=== PATIENT | male | born 1990 | race American Indian/Alaskan Native ===

== ENCOUNTER 2020-12-31 11:44 | Inpatient (IN) | payer OTHER ==
--- NOTE | 2020-12-31 12:03 | Event Note ---
ED Screening Note Date of service: 12/31/20 Time: 12:01 ED Screening Note: Patient complains of continued right lower leg swelling and pain x2 months and new onset of chest pain or shortness of breath Patient was seen at [place] x2 for right leg swelling and wound; states just finished Bactrim and had an ultrasound that was negative for DVT 1 week ago Patient noted to be tachycardic with a fever Patient mildly tachypneic on exam This initial assessment/diagnostic orders/clinical plan/treatment(s) is/are subject to change based on patients health status, clinical progression and re- assessment by fellow clinical providers in the ED. Further treatment and workup at subsequent clinical providers discretion. Patient/guardian urged not to elope from the ED as their condition may be serious if not clinically assessed and managed. Initial orders include: Sepsis protocol
[2020-12-31] MEDS ORDERED: ACETAMINOPHEN 325 MG TAB PO ONE (12:04)
[2020-12-31] MEDS ORDERED: SODIUM CHLORIDE 0.9% 1000 ML 1,000 ML IV ONE (12:42)
[2020-12-31] MEDS ORDERED: CEFEPIME/NS 2 GM/100 ML 2 GM/100 ML BAG IV ONE (12:43)
[2020-12-31 12:45] LABS: Basophils % (Auto) 0.3 % (0.0-1.8); Eosinophils % (Auto) 0.2 % (0.0-4.3); Lymphocytes # (Auto) 2.1 K/mm3 (1.2-5.4); Lymphocytes % (Auto) 16.6 % (13.4-35.0); Mean Corpuscular HGB Conc 33 % (32-34); Mean Corpuscular Volume 92 fl (84-94); Monocytes # (Auto) 0.9 K/mm3 (0.0-0.8); Monocytes % (Auto) 7.3 % (0.0-7.3); Platelet Count 214 K/mm3 (140-440); Red Blood Count 4.56 M/mm3 (3.65-5.03); Red Cell Distribution Width 13.9 % (13.2-15.2)
[2020-12-31] MEDS ORDERED: VANCOMYCIN PHARMACY TO DOSE IV SCH ×2 (13:00→23:00)
[2020-12-31 13:10] LABS: Alanine Aminotransferase 25 units/L (7-56); Albumin 3.9 g/dL (3.9-5); BUN/Creatinine Ratio 13; Blood Urea Nitrogen 15 mg/dL (9-20); Calcium 8.8 mg/dL (8.4-10.2); Hemolysis Index 4
[2020-12-31] MEDS ORDERED: VANCOMYCIN 2,000 MG in SODIUM CHLORIDE 0.9% 500 ML 500 ML IV ONE (13:30)
--- NOTE | 2020-12-31 13:32 | Emergency Department Report ---
ED General Adult HPI - General Chief complaint: Wound/Laceration Stated complaint: CHEST PAIN/SOB/RT LEG PAIN Time Seen by Provider: 12/31/20 12:01 Source: patient Mode of arrival: Ambulatory Limitations: No Limitations - History of Present Illness Initial comments: This is a 30-year-old male who gives a somewhat variable history. According to the screening note: Patient complains of continued right lower leg swelling and pain x2 months and new onset of chest pain or shortness of breath Patient was seen at [place] x2 for right leg swelling and wound; states just finished Bactrim and had an ultrasound that was negative for DVT 1 week ago Patient noted to be tachycardic with a fever Patient mildly tachypneic on exam Patient is a difficult historian. He was additionally somewhat reticent to allow examination of his feet. He denies recent travel to [place] but then told the nurse that he had a recent trip to [place] to "see his old lady". He told me he had a history of hypertension but is on medication typical for heart failure to include lisinopril carvedilol and Lasix. He stated that he did not have an ulcer on his leg but a problem that is "venous". He has been to the [place] emergency department 2 times over the last 2 to 3 weeks. He indicated to me that he has had a negative ultrasound of the affected leg. Patient states that he has had chills since last night. He measured his temperature at home and it was greater than 99. He stated he had some headache and substernal chest pain which was also mildly felt posteriorly. Pain was not pleuritic. Chest pain has resolved. He is no longer complaining of a headache. -: Gradual, week(s) Severity scale (0 -10): 6 - Related Data Allergies Allergy/AdvReac Type Severity Reaction Status Date / Time shellfish derived Allergy Hives Verified 12/31/20 11:58 ED Review of Systems ROS: Stated complaint: CHEST PAIN/SOB/RT LEG PAIN Other details as noted in HPI Constitutional: chills, fever Eyes: denies: eye pain, vision change ENT: denies: ear pain, throat pain Respiratory: shortness of breath. denies: cough, wheezing Cardiovascular: chest pain. denies: palpitations Endocrine: no symptoms reported Gastrointestinal: denies: abdominal pain, nausea, diarrhea Genitourinary: denies: urgency, dysuria Musculoskeletal: as per HPI (Bilateral leg swelling, ulcer right posterior calf). denies: back pain, arthralgia Skin: as per HPI (Superficial ulcer with a lot of exudate of the right posterior calf. Foul-smelling. Some erythema of the right foot. 2-3+ edema of bilateral legs. Dorsalis pedis pulses present bilaterally. Neurovascular exam is grossly intact.). denies: rash, lesions Neurological: denies: headache, weakness, paresthesias Psychiatric: denies: anxiety, depression Hematological/Lymphatic: denies: easy bleeding, easy bruising ED Past Medical Hx - Past Medical History Hx Hypertension: Yes Hx Congestive Heart Failure: Yes Hx Diabetes: No (Denies) Additional medical history: Leg ulcer treated with Bactrim. - Surgical History Past Surgical History?: No - Social History Smoking Status: Current Every Day Smoker Substance Use Type: None ED Physical Exam - General Limitations: Physical Limitation General appearance: obese (Morbid) - Head Head exam: Present: atraumatic, normocephalic - Eye Eye exam: Present: normal appearance. Absent: scleral icterus - ENT ENT exam: Present: mucous membranes moist - Neck Neck exam: Present: normal inspection. Absent: tenderness - Respiratory Respiratory exam: Present: normal lung sounds bilaterally. Absent: respiratory distress - Cardiovascular Cardiovascular Exam: Present: regular rate, normal rhythm. Absent: systolic murmur, diastolic murmur, rubs, gallop - GI/Abdominal GI/Abdominal exam: Present: soft, distended, normal bowel sounds. Absent: tenderness, guarding, rebound, rigid - Rectal Rectal exam: Present: deferred - Extremities Exam Extremities exam: Present: other (Ulcer as described below) - Back Exam Back exam: Present: normal inspection - Neurological Exam Neurological exam: Present: alert, oriented X3 - Psychiatric Psychiatric exam: Present: normal affect, normal mood - Skin Skin exam: Present: warm, dry, other (Superficial ulcer with a lot of exudate of the right posterior calf. Foul-smelling. Some erythema of the right foot. 2- 3+ edema of bilateral legs. Dorsalis pedis pulses present bilaterally. Neurovascular exam is grossly intact.). Absent: rash ED Course Vital Signs 12/31/20 12:01 Temperature 100.5 F H Pulse Rate 106 H Respiratory 24 Rate Blood Pressure 157/94 O2 Sat by Pulse 98 Oximetry - Reevaluation(s) Reevaluation #1: IV fluids at a controlled rate, empiric antibiotics, admission is anticipated. Review chest x-ray, labs additional medical screening. 12/31/20 13:35 Reevaluation #2: Discussed with hospitalist and admit. Fluids, controlled fashion considering history of CHF. Empiric antibiotics. Patient is stable. Admit by Dr. Stuart. 12/31/20 14:19 ED Medical Decision Making - Lab Data Result diagrams: 12/31/20 12:21 12/31/20 12:21 - EKG Data -: EKG Interpreted by [place] EKG shows normal: sinus rhythm, axis, intervals, ST-T waves Rate: tachycardia - EKG Data Interpretation: other (There is a QS in V2 and V3, this may be related to LVH/habitus. Cannot exclude old septal injury.) - Radiology Data Radiology results: image reviewed (I do not see any acute process on tibial films or chest x-ray. Consider cardiomegaly. No decompensation.) Critical care attestation.: If time is entered above; I have spent that time in minutes in the direct care of this critically ill patient, excluding procedure time. ED Disposition Clinical Impression: Morbid obesity, Venous stasis ulcer of right lower leg with edema of right lower leg Sepsis Qualifiers: Sepsis type: sepsis due to unspecified organism Sepsis acute organ dysfunction status: without acute organ dysfunction Qualified Code(s): A41.9 - Sepsis, unspecified organism Cardiomyopathy Qualifiers: Cardiomyopathy type: unspecified Qualified Code(s): I42.9 - Cardiomyopathy, unspecified Disposition: OP ADMIT IP TO THIS HOSP Is pt being admited?: Yes Does the pt Need Aspirin: Yes Condition: Stable Referrals: PRIMARY CARE,MD [Primary Care Provider] - 3-5 Days Time of Disposition: 14:21
--- NOTE | 2020-12-31 13:38 | XRay Report ---
XR chest 1V ap INDICATION / CLINICAL INFORMATION: SOB, chest pain, fever. COMPARISON: None available. FINDINGS: Findings in the chest are accentuated by body habitus and phase of inspiration. SUPPORT DEVICES: None. HEART /PULMONARY VASCULATURE: The LUNGS / PLEURA: No significant pulmonary or pleural abnormality. No pneumothorax. ADDITIONAL FINDINGS: No significant additional findings. IMPRESSION: Low lung volumes and cardiomegaly. No definite acute chest process. Signer Name: Frederick Head MD Signed: 12/31/2020 1:34 PM Workstation Name: [id number]
[2020-12-31 13:41] LABS: Bilirubin,Urine NEG (Negative); Blood,Urine SM (Negative); Color,Urine Yellow (Yellow); Mucus,Urine FEW /HPF; Protein,Urine <15 mg/dL mg/dL (Negative); Urobilinogen,Urine < 2.0 mg/dL (<2.0)
[2020-12-31 13:47] LABS: INR 1.02 (0.87-1.13)
[2020-12-31 13:47] LABS: Amphetamine Screen,Urine Negative; Benzodiazepines Screen,Urine Negative; Cannabinoid Screen,Urine Negative; Cocaine Screen,Urine Negative; Methadone Screen,Urine Negative; Opiate Screen,Urine Negative
--- NOTE | 2020-12-31 13:47 | XRay Report ---
RIGHT TIBIA-FIBULA 6 VIEW(S) INDICATION / CLINICAL INFORMATION: chronic wound, worsening COMPARISON: None available. FINDINGS: BONES / JOINT(S): No acute fracture or subluxation. No significant arthritis. SOFT TISSUES: Moderate diffuse soft tissue swelling may be secondary to dependent edema or cellulitis ADDITIONAL FINDINGS: No soft tissue ulcer or radiographic evidence for osteomyelitis right foreleg Signer Name: Kavin Méndez MD Signed: 12/31/2020 1:43 PM Workstation Name: [id number]
[2020-12-31 13:48] LABS: Partial Thromboplastin Time 28.4 Sec. (24.2-36.6)
[2020-12-31 13:55] LABS: Creatine Kinase MB 1.7 ng/mL (0.0-4.0)
[2020-12-31] MEDS ORDERED: ASPIRIN 325 MG TAB PO ONE (14:21)
[2020-12-31] MEDS ORDERED: HYDROmorphone 1 MG/1 ML INJ ONE (18:57)
[2020-12-31] MEDS: HYDROmorphone 1 MG/1 ML INJ IV PRN ×2 (19:01→22:13)
--- NOTE | 2020-12-31 21:39 | History and Physical Report ---
History of Present Illness Date of examination: 12/31/20 Date of admission: 12/31/20 14:22 Chief complaint: Shortness of breath for 1 week Right leg ulcer for 1 month History of present illness: 30-year-old male with morbid obesity and BMI of 62 with history of congestive heart failure and right leg ulcer comes in for increasing shortness of breath of 1 week duration. Also right leg ulcer for more than a month with his worsening with slight drainage. The ulcer is on the right lower extremity just 6 inches above the ankle on the posterior aspect. No fever or chills. Orthopnea present. Class IV NYHA symptoms present. Patient is a very poor historian. Occasional chest pain. Patient is not sure about his chest pain. States it is mild and intermittent. - Past Medical History --Hypertension: Yes --Congestive Heart Failure: Yes --Diabetes: No (Denies) Additional medical history: Leg ulcer treated with Bactrim. - Surgical History Past Surgical History?: No - Social History Smoking Status: Current Every Day Smoker Substance Use Type: None Review of Systems ROS: Stated complaint: CHEST PAIN/SOB/RT LEG PAIN Other details as noted in HPI Constitutional: chills, fever Eyes: denies: eye pain, vision change ENT: denies: ear pain, throat pain Respiratory: shortness of breath. denies: cough, wheezing Cardiovascular: chest pain. denies: palpitations Endocrine: no symptoms reported Gastrointestinal: denies: abdominal pain, nausea, diarrhea Genitourinary: denies: urgency, dysuria Musculoskeletal: as per HPI (Bilateral leg swelling, ulcer right posterior calf). denies: back pain, arthralgia Skin: as per HPI (Superficial ulcer with a lot of exudate of the right posterior calf. Foul-smelling. Some erythema of the right foot. 2-3+ edema of bilateral legs. Dorsalis pedis pulses present bilaterally. Neurovascular exam is grossly intact.). denies: rash, lesions Neurological: denies: headache, weakness, paresthesias Psychiatric: denies: anxiety, depression Hematological/Lymphatic: denies: easy bleeding, easy bruising Medications and Allergies Allergies Allergy/AdvReac Type Severity Reaction Status Date / Time shellfish derived Allergy Hives Verified 12/31/20 11:58 Home Medications Medication Instructions Recorded Confirmed Last Taken Type Furosemide [Lasix] 20 mg PO QDAY 01/01/21 01/01/21 Unknown History Ibuprofen [Motrin] 600 mg PO Q8H PRN 01/01/21 01/01/21 Unknown History amLODIPine [Norvasc] 10 mg PO DAILY 01/01/21 01/01/21 Unknown History carvediloL [Coreg] 12.5 mg PO BID 01/01/21 01/01/21 Unknown History lisinopriL [Lisinopril] 10 mg PO DAILY 01/01/21 01/01/21 Unknown History Active Meds: Active Medications Hydromorphone HCl (Hydromorphone 1 Mg/1 Ml Inj) 0.5 mg IV Q3H PRN PRN Reason: Pain , Severe (7-10) Last Admin: 12/31/20 19:01 Dose: 0.5 mg Documented by: Exam - Constitutional Vitals: Temp Pulse Resp BP Pulse Ox 100.5 F H 99 H 16 147/85 95 12/31/20 12:01 12/31/20 19:01 12/31/20 19:31 12/31/20 18:00 12/31/20 16:00 General appearance: Present: severe distress, well-nourished - EENT Eyes: Present: PERRL ENT: hearing intact, clear oral mucosa - Neck Neck: Present: supple, normal ROM - Respiratory Respiratory effort: normal Respiratory: bilateral: CTA, rales - Cardiovascular Heart rate: 98 Rhythm: regular Heart Sounds: Present: S1 & S2. Absent: rub, click - Extremities Extremities: pulses symmetrical, No edema, abnormal (Right leg ulcer 10 cm X 5 cm 1 mm to 2 mm depth no active drainage.) Peripheral Pulses: within normal limits - Abdominal General gastrointestinal: Present: soft, non-tender, non-distended, normal bowel sounds Male genitourinary: Present: normal - Integumentary Integumentary: Present: clear, warm, dry - Musculoskeletal Musculoskeletal: gait normal, strength equal bilaterally - Psychiatric Psychiatric: appropriate mood/affect, intact judgment & insight - Neurologic Neurologic: CNII-XII intact, moves all extremities HEART Score - HEART Score History: Moderately suspicious EKG: Non-specific Age: < 45 Risk factors: 1-2 risk factors Troponin: Troponin T < 0.010 ng/mL (0.00-0.029) 12/31/20 12:21 Troponin: 1-3x normal limit HEART Score: 4 - Critical Actions Critical Actions: 4-6 pts:12-16.6% risk of adverse cardiac event. Should be admitted Results - Labs CBC & Chem 7: 12/31/20 12:21 12/31/20 12:21 Labs: Laboratory Last Values WBC 12.6 K/mm3 (4.5-11.0) H 12/31/20 12:21 RBC 4.56 M/mm3 (3.65-5.03) 12/31/20 12:21 Hgb 14.0 gm/dl (11.8-15.2) 12/31/20 12:21 Hct 42.0 % (35.5-45.6) 12/31/20 12: MCV 92 fl (84-94) 12/31/20 12: MCH 31 pg (28-32) 12/31/20 12: MCHC 33 % (32-34) 12/31/20 12:21 RDW 13.9 % (13.2-15.2) 12/31/20 12:21 Plt Count 214 K/mm3 (140-440) 12/31/20 12:21 Lymph % (Auto) 16.6 % (13.4-35.0) 12/31/20 12: [place] % (Auto) 7.3 % (0.0-7.3) 12/31/20 12: Eos % (Auto) 0.2 % (0.0-4.3) 12/31/20 12:21 Baso % (Auto) 0.3 % (0.0-1.8) 12/31/20 12: Lymph # (Auto) 2.1 K/mm3 (1.2-5.4) 12/31/20 12:21 [place] # (Auto) 0.9 K/mm3 (0.0-0.8) H 12/31/20 12:21 Eos # (Auto) 0.0 K/mm3 (0.0-0.4) 12/31/20 12: Baso # (Auto) 0.0 K/mm3 (0.0-0.1) 12/31/20 12:21 Seg Neutrophils % 75.6 % (40.0-70.0) H 12/31/20 12: Seg Neutrophils # 9.5 K/mm3 (1.8-7.7) H 12/31/20 12:21 PT 13.2 Sec. (12.2-14.9) 12/31/20 13:21 INR 1.02 (0.87-1.13) 12/31/20 13:21 APTT 28.4 Sec. (24.2-36.6) 12/31/20 13:21 Sodium 133 mmol/L (137-145) L 12/31/20 12:21 Potassium 3.8 mmol/L (3.6-5.0) 12/31/20 12:21 Chloride 97.9 mmol/L (98-107) L 12/31/20 12:21 Carbon Dioxide 26 mmol/L (22-30) 12/31/20 12:21 Anion Gap 13 mmol/L 12/31/20 12:21 BUN 15 mg/dL (9-20) 12/31/20 12:21 Creatinine 1.2 mg/dL (0.8-1.3) 12/31/20 12:21 Estimated GFR > 60 ml/min 12/31/20 12:21 BUN/Creatinine Ratio 13 % 12/31/20 12:21 Glucose 89 mg/dL (75-100) 12/31/20 12:21 Lactic Acid 1.00 mmol/L (0.7-2.0) 12/31/20 12:21 Calcium 8.8 mg/dL (8.4-10.2) 12/31/20 12:21 Magnesium 1.70 mg/dL (1.7-2.3) 12/31/20 13:21 Total Bilirubin 0.50 mg/dL (0.1-1.2) 12/31/20 12:21 AST 24 units/L (5-40) 12/31/20 12:21 ALT 25 units/L (7-56) 12/31/20 12:21 Alkaline Phosphatase 74 units/L (35-129) 12/31/20 12:21 Total Creatine Kinase 639 units/L (55-170) H 12/31/20 13:21 CK-MB (CK-2) 1.7 ng/mL (0.0-4.0) 12/31/20 13:21 CK-MB (CK-2) Rel Index 0.2 (0-4) 12/31/20 13:21 Troponin T < 0.010 ng/mL (0.00-0.029) 12/31/20 12:21 NT-Pro-B Natriuret Pep 417.4 pg/mL (0-450) 12/31/20 13:21 Total Protein 7.4 g/dL (6.3-8.2) 12/31/20 12:21 Albumin 3.9 g/dL (3.9-5) 12/31/20 12:21 Albumin/Globulin Ratio 1.1 % 12/31/20 12:21 Urine Color Yellow (Yellow) 12/31/20 Unknown Urine Turbidity Clear (Clear) 12/31/20 Unknown Urine pH 7.0 (5.0-7.0) 12/31/20 Unknown Ur Specific [place] 1.015 (1.003-1.030) 12/31/20 Unknown Urine Protein <15 mg/dl mg/dL (Negative) 12/31/20 Unknown Urine Glucose (UA) Neg mg/dL (Negative) 12/31/20 Unknown Urine Ketones Neg mg/dL (Negative) 12/31/20 Unknown Urine Blood Sm (Negative) 12/31/20 Unknown Urine Nitrite Neg (Negative) 12/31/20 Unknown Urine Bilirubin Neg (Negative) 12/31/20 Unknown Urine Urobilinogen < 2.0 mg/dL (<2.0) 12/31/20 Unknown Ur Leukocyte Esterase Neg (Negative) 12/31/20 Unknown Urine WBC (Auto) 1.0 /HPF (0.0-6.0) 12/31/20 Unknown Urine RBC (Auto) 10.0 /HPF (0.0-6.0) 12/31/20 Unknown U Epithel Cells (Auto) 1.0 /HPF (0-13.0) 12/31/20 Unknown Urine Mucus Few /HPF 12/31/20 Unknown Urine Opiates Screen Negative 12/31/20 Unknown Urine Methadone Screen Negative 12/31/20 Unknown Ur Barbiturates Screen Negative 12/31/20 Unknown Ur Phencyclidine Scrn Negative 12/31/20 Unknown Ur Amphetamines Screen Negative 12/31/20 Unknown U Benzodiazepines Scrn Negative 12/31/20 Unknown Urine Cocaine Screen Negative 12/31/20 Unknown U Marijuana (THC) Screen Negative 12/31/20 Unknown Drugs of Abuse Note Disclamer 12/31/20 Unknown Short CBC 12/31/20 Range/Units 12:21 WBC 12.6 H (4.5-11.0) K/mm3 Hgb 14.0 (11.8-15.2) gm/dl Hct 42.0 (35.5-45.6) % Plt Count 214 (140-440) K/mm3 BMP 12/31/20 12:21 Sodium 133 L Potassium 3.8 Chloride 97.9 L Carbon Dioxide 26 BUN 15 Creatinine 1.2 Glucose 89 Calcium 8.8 Cardiac Enzymes 12/31/20 12/31/20 12/31/20 Range/Units 12:21 13:21 22:40 Total Creatine Kinase 639 H 575 H (55-170) units/L CK-MB (CK-2) 1.7 2.2 (0.0-4.0) ng/mL Troponin T < 0.010 < 0.010 (0.00-0.029) ng/mL 01/01/21 Range/Units 04:10 Total Creatine Kinase 588 H (55-170) units/L CK-MB (CK-2) 2.7 (0.0-4.0) ng/mL Troponin T < 0.010 (0.00-0.029) ng/mL Liver Function 12/31/20 Range/Units 12:21 Total Bilirubin 0.50 (0.1-1.2) mg/dL AST 24 (5-40) units/L ALT 25 (7-56) units/L Alkaline Phosphatase 74 (35-129) units/L Albumin 3.9 (3.9-5) g/dL Urine 12/31/20 Range/Units Unknown Urine Color Yellow (Yellow) Urine pH 7.0 (5.0-7.0) Ur Specific [place] 1.015 (1.003-1.030) Urine Protein <15 mg/dl (Negative) mg/dL Urine Glucose (UA) Neg (Negative) mg/dL Microbiology: Microbiology 12/31/20 12:21 Peripheral/Venous Blood Culture - Preliminary Culture in Progress 12/31/20 12:21 Peripheral/Venous Blood Culture - Preliminary Culture in Progress - Imaging and Cardiology EKG: report reviewed (Sinus rhythm no acute ST-T wave changes) Chest x-ray: report reviewed Imaging and Cardiology: Chest x-ray Low lung volumes and cardiomegaly No definite acute chest process Right tibia-fibula x-rays No soft tissue ulcer radiographic evidence for osteomyelitis in the right foreleg Assessment and Plan Advance Directives: Yes (Full code) VTE prophylaxis?: Chemical Plan of care discussed with patient/family: Yes - Patient Problems (1) Acute exacerbation of CHF (congestive heart failure) Current Visit: Yes Status: Acute Qualifiers: Heart failure type: combined systolic and diastolic Qualified Code(s): I50.43 - Acute on chronic combined systolic (congestive) and diastolic (congestive) heart failure Plan to address problem: We will get echocardiogram for ejection fraction IV Lasix through 12 initiated : Cardiology consult requested (2) Cellulitis and abscess of right leg Current Visit: Yes Status: Acute Plan to address problem: A large ulcer 10 cm X 5 cm present on the posterior aspect of the right lower extremity 6 inches above the ankle. No active drainage. But warm to touch. Patient initiated on IV Unasyn and vancomycin Surgery consult requested (3) Chest pain Current Visit: Yes Status: Acute Plan to address problem: Serial troponins and CK/MB Will defer to cardiology regarding Lexiscan Patient may not fit the table (4) Morbid obesity Current Visit: Yes Status: Chronic Plan to address problem: Patient counseled Patient to follow-up with bariatric surgery as outpatient There is gastric bypass Insurance concerns present (5) DVT prophylaxis Current Visit: Yes Status: Acute Plan to address problem: On heparin and GI prophylaxis
[2020-12-31] MEDS ORDERED: ACETAMINOPHEN 325 MG TAB PO PRN (22:07)
[2020-12-31] MEDS ORDERED: ONDANSETRON 4 MG/2 ML INJ IV PRN (22:07)
[2020-12-31 23:15] LABS: Creatine Kinase MB 2.2 ng/mL (0.0-4.0)
[2020-12-31] MEDS: POTASSIUM CHLORIDE ER 20 MEQ TAB PO SCH (23:36)
[2020-12-31] MEDS: AMPICILLIN/SULBACTA 3GM/100ML 3 GM/100 ML BAG IV SCH (23:36)
[2021-01-01] MEDS ORDERED: VANCOMYCIN 2,000 MG in SODIUM CHLORIDE 0.9% 500 ML 500 ML IV SCH
[2021-01-01] MEDS: FUROSEMIDE 40 MG/4 ML INJ IV SCH ×2 (05:16→18:43)
[2021-01-01] MEDS: AMPICILLIN/SULBACTA 3GM/100ML 3 GM/100 ML BAG IV SCH ×3 (05:16→18:43)
[2021-01-01] MEDS: HYDROmorphone 1 MG/1 ML INJ IV PRN ×3 (05:16→18:55)
[2021-01-01 05:43] LABS: Creatine Kinase MB 2.7 ng/mL (0.0-4.0)
--- NOTE | 2021-01-01 09:23 | Progress Note ---
Assessment and Plan Assessment and plan: (1) Acute exacerbation of CHF (congestive heart failure) Current Visit: Yes Status: Acute Qualifiers: Heart failure type: combined systolic and diastolic Qualified Code(s): I50.43 - Acute on chronic combined systolic (congestive) and diastolic (congestive) heart failure Plan to address problem: We will get echocardiogram for ejection fraction IV Lasix through 12 initiated : Cardiology consult requested (2) Cellulitis and abscess of right leg Current Visit: Yes Status: Acute Plan to address problem: A large ulcer 10 cm X 5 cm present on the posterior aspect of the right lower extremity 6 inches above the ankle. No active drainage. But warm to touch. Patient initiated on IV Unasyn and vancomycin Surgery consult requested (3) Chest pain Current Visit: Yes Status: Acute Plan to address problem: Serial troponins and CK/MB Will defer to cardiology regarding Lexiscan Patient may not fit the table (4) Morbid obesity Current Visit: Yes Status: Chronic Plan to address problem: Patient counseled Patient to follow-up with bariatric surgery as outpatient There is gastric bypass Insurance concerns present (5) DVT prophylaxis Current Visit: Yes Status: Acute Plan to address problem: On heparin and GI prophylaxis 01/01/2021 -Patient is complaining intermittent shortness of breath, patient was off oxygen. Seen by cardiology and recommend to continue Lasix and added beta- madelyn. Patient has stasis ulcer of the right lower extremity patient is placed on IV Unasyn and vancomycin. General surgery consulted and will follow recommendations. Patient is morbidly obese. History Interval history: Patient was seen and evaluated this morning Patient is complaining shortness of breath and right leg pain Hospitalist Physical - Physical exam Narrative exam: Not in cardiopulmonary distress. The patient is morbidly obese. Vital signs as documented. Head exam is unremarkable. No scleral icterus . Neck is without jugular venous distension, thyromegaly, or carotid bruits. Lungs are clear to auscultation. Cardiac exam reveals regular rate and Rhythm. Abdominal exam reveals normal bowel sounds, nontender, no organomegaly. Extremities right lower extremity ulcer. [employer]: Alert and oriented 3. No focal weakness. - Constitutional Vitals: Temp Pulse Resp BP Pulse Ox 98.0 F 87 16 140/79 95 01/01/21 04:56 01/01/21 04:56 01/01/21 04:56 01/01/21 04:56 01/01/21 04:56 General appearance: Present: severe distress, well-nourished HEART Score - HEART Score EKG: Non-specific Age: < 45 Risk factors: 1-2 risk factors Troponin: Troponin T < 0.010 ng/mL (0.00-0.029) 01/01/21 04:10 Troponin: 1-3x normal limit - Critical Actions Critical Actions: 4-6 pts:12-16.6% risk of adverse cardiac event. Should be admitted Results - Labs CBC & Chem 7: 01/01/21 10:01 01/01/21 10:01 Labs: Laboratory Last Values WBC 12.6 K/mm3 (4.5-11.0) H 12/31/20 12: RBC 4.56 M/mm3 (3.65-5.03) 12/31/20 12: Hgb 14.0 gm/dl (11.8-15.2) 12/31/20 12:21 Hct 42.0 % (35.5-45.6) 12/31/20 12:21 MCV 92 fl (84-94) 12/31/20 12:21 MCH 31 pg (28-32) 12/31/20 12:21 MCHC 33 % (32-34) 12/31/20 12: RDW 13.9 % (13.2-15.2) 12/31/20 12:21 Plt Count 214 K/mm3 (140-440) 12/31/20 12:21 Lymph % (Auto) 16.6 % (13.4-35.0) 12/31/20 12:21 [place] % (Auto) 7.3 % (0.0-7.3) 12/31/20 12:21 Eos % (Auto) 0.2 % (0.0-4.3) 12/31/20 12:21 Baso % (Auto) 0.3 % (0.0-1.8) 12/31/20 12: Lymph # (Auto) 2.1 K/mm3 (1.2-5.4) 12/31/20 12: [place] # (Auto) 0.9 K/mm3 (0.0-0.8) H 12/31/20 12:21 Eos # (Auto) 0.0 K/mm3 (0.0-0.4) 12/31/20 12:21 Baso # (Auto) 0.0 K/mm3 (0.0-0.1) 12/31/20 12:21 Seg Neutrophils % 75.6 % (40.0-70.0) H 12/31/20 12:21 Seg Neutrophils # 9.5 K/mm3 (1.8-7.7) H 12/31/20 12:21 PT 13.2 Sec. (12.2-14.9) 12/31/20 13:21 INR 1.02 (0.87-1.13) 12/31/20 13:21 APTT 28.4 Sec. (24.2-36.6) 12/31/20 13:21 Sodium 133 mmol/L (137-145) L 12/31/20 12:21 Potassium 3.8 mmol/L (3.6-5.0) 12/31/20 12: Chloride 97.9 mmol/L (98-107) L 12/31/20 12: Carbon Dioxide 26 mmol/L (22-30) 12/31/20 12:21 Anion Gap 13 mmol/L 12/31/20 12:21 BUN 15 mg/dL (9-20) 12/31/20 12:21 Creatinine 1.2 mg/dL (0.8-1.3) 12/31/20 12:21 Estimated GFR > 60 ml/min 12/31/20 12: BUN/Creatinine Ratio 13 % 12/31/20 12: Glucose 89 mg/dL (75-100) 12/31/20 12:21 Lactic Acid 1.00 mmol/L (0.7-2.0) 12/31/20 12:21 Calcium 8.8 mg/dL (8.4-10.2) 12/31/20 12:21 Magnesium 1.70 mg/dL (1.7-2.3) 12/31/20 13:21 Total Bilirubin 0.50 mg/dL (0.1-1.2) 12/31/20 12:21 AST 24 units/L (5-40) 12/31/20 12:21 ALT 25 units/L (7-56) 12/31/20 12:21 Alkaline Phosphatase 74 units/L (35-129) 12/31/20 12: Total Creatine Kinase 588 units/L (55-170) H 01/01/21 04:10 CK-MB (CK-2) 2.7 ng/mL (0.0-4.0) 01/01/21 04:10 CK-MB (CK-2) Rel Index 0.4 (0-4) 01/01/21 04:10 Troponin T < 0.010 ng/mL (0.00-0.029) 01/01/21 04:10 NT-Pro-B Natriuret Pep 417.4 pg/mL (0-450) 12/31/20 13:21 Total Protein 7.4 g/dL (6.3-8.2) 12/31/20 12:21 Albumin 3.9 g/dL (3.9-5) 12/31/20 12:21 Albumin/Globulin Ratio 1.1 % 12/31/20 12:21 Urine Color Yellow (Yellow) 12/31/20 Unknown Urine Turbidity Clear (Clear) 12/31/20 Unknown Urine pH 7.0 (5.0-7.0) 12/31/20 Unknown Ur Specific [place] 1.015 (1.003-1.030) 12/31/20 Unknown Urine Protein <15 mg/dl mg/dL (Negative) 12/31/20 Unknown Urine Glucose (UA) Neg mg/dL (Negative) 12/31/20 Unknown Urine Ketones Neg mg/dL (Negative) 12/31/20 Unknown Urine Blood Sm (Negative) 12/31/20 Unknown Urine Nitrite Neg (Negative) 12/31/20 Unknown Urine Bilirubin Neg (Negative) 12/31/20 Unknown Urine Urobilinogen < 2.0 mg/dL (<2.0) 12/31/20 Unknown Ur Leukocyte Esterase Neg (Negative) 12/31/20 Unknown Urine WBC (Auto) 1.0 /HPF (0.0-6.0) 12/31/20 Unknown Urine RBC (Auto) 10.0 /HPF (0.0-6.0) 12/31/20 Unknown U Epithel Cells (Auto) 1.0 /HPF (0-13.0) 12/31/20 Unknown Urine Mucus Few /HPF 12/31/20 Unknown Urine Opiates Screen Negative 12/31/20 Unknown Urine Methadone Screen Negative 12/31/20 Unknown Ur Barbiturates Screen Negative 12/31/20 Unknown Ur Phencyclidine Scrn Negative 12/31/20 Unknown Ur Amphetamines Screen Negative 12/31/20 Unknown U Benzodiazepines Scrn Negative 12/31/20 Unknown Urine Cocaine Screen Negative 12/31/20 Unknown U Marijuana (THC) Screen Negative 12/31/20 Unknown Drugs of Abuse Note Disclamer 12/31/20 Unknown Microbiology: Microbiology 12/31/20 12:21 Peripheral/Venous Blood Culture - Preliminary Culture in Progress 12/31/20 12:21 Peripheral/Venous Blood Culture - Preliminary Culture in Progress Islas/IV: Voiding Method Toilet Active Medications - Current Medications Current Medications: Generic Name Dose Route Start Last Admin Trade Name Freq PRN Reason Stop Dose Admin Acetaminophen 650 mg 12/31/20 22:07 Acetaminophen 325 Mg Tab PO Q4H PRN Pain MILD(1-3)/Fever >100.5/MICHELLE Furosemide 40 mg 01/01/21 06:00 01/01/21 05:16 Furosemide 40 Mg/4 Ml Inj IV 40 mg 0600,1800 RITU Administration Hydromorphone HCl 0.5 mg 12/31/20 19:01 01/01/21 05:16 Hydromorphone 1 Mg/1 Ml Inj IV 0.5 mg Q3H PRN Administration Pain , Severe (7-10) Ampicillin Sodium/Sulbactam Sodium 3 gm in 100 mls @ 100 mls/hr 01/01/21 00:00 01/01/21 05:16 Unasyn/Ns 3 Gm/100 Ml IV 100 mls/hr Q6HR RITU Administration Protocol Vancomycin HCl 2,000 mg/ 540 mls @ 250 mls/hr 01/01/21 10:00 Sodium Chloride IV Q12H RITU Ondansetron HCl 4 mg 12/31/20 22:07 Ondansetron 4 Mg/2 Ml Inj IV Q8H PRN Nausea And Vomiting Potassium Chloride 20 meq 12/31/20 23:00 12/31/20 23:36 Potassium Chloride Er 20 Meq Tab PO 20 meq Q12HR RITU Administration Sodium Chloride 10 ml 12/31/20 23:00 12/31/20 23:36 Sodium Chloride 0.9% 10 Ml Flush Syringe IV 10 ml BID RITU Administration Sodium Chloride 10 ml 12/31/20 22:07 Sodium Chloride 0.9% 10 Ml Flush Syringe IV PRN PRN LINE FLUSH
[2021-01-01 10:37] LABS: Basophils % (Auto) 0.4 % (0.0-1.8); Eosinophils # (Auto) 0.2 K/mm3 (0.0-0.4); Eosinophils % (Auto) 1.6 % (0.0-4.3); Hematocrit 41.9 % (35.5-45.6); Lymphocytes # (Auto) 2.4 K/mm3 (1.2-5.4); Lymphocytes % (Auto) 23.9 % (13.4-35.0); Mean Corpuscular HGB Conc 33 % (32-34); Mean Corpuscular Volume 93 fl (84-94); Monocytes # (Auto) 1.2 K/mm3 (0.0-0.8); Monocytes % (Auto) 11.8 % (0.0-7.3); Platelet Count 209 K/mm3 (140-440); Red Blood Count 4.52 M/mm3 (3.65-5.03); Red Cell Distribution Width 13.5 % (13.2-15.2)
[2021-01-01] MEDS: POTASSIUM CHLORIDE ER 20 MEQ TAB PO SCH ×2 (10:53→22:18)
[2021-01-01 10:56] LABS: BUN/Creatinine Ratio 13; Blood Urea Nitrogen 15 mg/dL (9-20); Calcium 8.5 mg/dL (8.4-10.2); Hemolysis Index 7
--- NOTE | 2021-01-01 11:48 | Consultation ---
History of Present Illness Consult date: 01/01/21 Requesting physician: REGGIE MICHELE Consult reason: congestive heart failure History of present illness: This patient is a 30 year old male with a significant hx of morbid obesity, HTN, reported HF, and JOHN (compliant with PM CPAP). He is previously unknown to our practice. Patient presents with complaint of right leg pain associated with venous stasis ulcer on right calf and subjective fever that has been present for several weeks. Pt also complaining of intermittent SOB and CP x 1 week. Pt described CP as midsternal, 'gripping' pain which is worse with inspiration. Patient reports prior hospitalization in [place], [place] during which he was told he has "CHF." Pt reports he underwent echocardiogram at that time. He is unsure of results. Pt reports home medications include Lasix, Lisinopril, and Coreg. Echo 01/01/2021 reviewed: EF 45-50%. Left ventricle mildly dilated with severe concentric LVH and mild diastolic dysfunction. Trace AR. Telemetry reviewed: Sinus Tach 105. CXR negative. Past History Past Medical History: other (As per HPI) Social history: smoking Medications and Allergies Allergies Allergy/AdvReac Type Severity Reaction Status Date / Time shellfish derived Allergy Hives Verified 12/31/20 11:58 Home Medications Medication Instructions Recorded Confirmed Last Taken Type Furosemide [Lasix] 20 mg PO QDAY 01/01/21 01/01/21 Unknown History Ibuprofen [Motrin] 600 mg PO Q8H PRN 01/01/21 01/01/21 Unknown History amLODIPine [Norvasc] 10 mg PO DAILY 01/01/21 01/01/21 Unknown History carvediloL [Coreg] 12.5 mg PO BID 01/01/21 01/01/21 Unknown History lisinopriL [Lisinopril] 10 mg PO DAILY 01/01/21 01/01/21 Unknown History Active Meds: Active Medications Acetaminophen (Acetaminophen 325 Mg Tab) 650 mg PO Q4H PRN PRN Reason: Pain MILD(1-3)/Fever >100.5/MICHELLE Furosemide (Furosemide 40 Mg/4 Ml Inj) 40 mg IV 0600,1800 RITU Last Admin: 01/01/21 05:16 Dose: 40 mg Documented by: Hydromorphone HCl (Hydromorphone 1 Mg/1 Ml Inj) 0.5 mg IV Q3H PRN PRN Reason: Pain , Severe (7-10) Last Admin: 01/01/21 05:16 Dose: 0.5 mg Documented by: Ampicillin Sodium/Sulbactam Sodium (Unasyn/Ns 3 Gm/100 Ml) 3 gm in 100 mls @ 100 mls/hr IV Q6HR [facility]; Protocol Last Admin: 01/01/21 11:05 Dose: 100 mls/hr Documented by: Vancomycin HCl 2,000 mg/ (Sodium Chloride) 540 mls @ 250 mls/hr IV Q12H [facility] Ondansetron HCl (Ondansetron 4 Mg/2 Ml Inj) 4 mg IV Q8H PRN PRN Reason: Nausea And Vomiting Potassium Chloride (Potassium Chloride Er 20 Meq Tab) 20 meq PO Q12HR [facility] Last Admin: 01/01/21 10:53 Dose: 20 meq Documented by: Sodium Chloride (Sodium Chloride 0.9% 10 Ml Flush Syringe) 10 ml IV BID [facility] Last Admin: 01/01/21 10:54 Dose: 10 ml Documented by: Sodium Chloride (Sodium Chloride 0.9% 10 Ml Flush Syringe) 10 ml IV PRN PRN PRN Reason: LINE FLUSH Review of Systems Constitutional: fever, no weight loss, no weight gain, no chills, no sweats Ears, nose, mouth and throat: no ear pain, no ear discharge, no decreased hearing, no nose pain, no nasal congestion, no nasal discharge, no sinus pressure Cardiovascular: chest pain, edema, shortness of breath, dyspnea on exertion, leg edema, no palpitations, no rapid/irregular heart beat Respiratory: pain on inspiration, sleep apnea, no cough, no hemoptysis, no shortness of breath, no dyspnea on exertion Gastrointestinal: no abdominal pain, no nausea, no vomiting, no diarrhea, no constipation Genitourinary Male: no flank pain Musculoskeletal: no neck stiffness, no neck pain, no shooting arm pain, no arm numbness/tingling, no low back pain Integumentary: wounds, foot/leg ulcers (R calf ulcer), no rash, no pruritis, no redness, no sores, no jaundice Neurological: no head injury, no transient paralysis, no paralysis, no weakness, no parathesias, no numbness, no tingling, no seizures, no syncope Psychiatric: no anxiety Endocrine: no cold intolerance, no heat intolerance Hematologic/Lymphatic: no easy bruising, no easy bleeding Allergic/Immunologic: no urticaria Physical Examination Last Vital Signs Temp 98.0 F 01/01/21 04:56 Pulse 87 01/01/21 04:56 Resp 16 01/01/21 04:56 BP 140/79 01/01/21 04:56 Pulse Ox 95 01/01/21 04:56 General appearance: no acute distress HEENT: Positive: PERRL Neck: Positive: neck supple, trachea midline Cardiac: Positive: Reg Rate and Rhythm, S1/S2 Lungs: Positive: Normal Breath Sounds Neuro: Positive: Grossly Intact Abdomen: Positive: Unremarkable Skin: Positive: Wound. Negative: Rash Musculoskeletal: other (Right Calf Ulcer ) Extremities: Present: upper extr. pulses, lower extr. pulses, +2 Edema Results 01/01/21 10:01 01/01/21 10:01 Cardiac Enzymes 12/31/20 12/31/20 12/31/20 Range/Units 12:21 13:21 22:40 AST 24 (5-40) units/L CK-MB (CK-2) 1.7 2.2 (0.0-4.0) ng/mL 01/01/21 Range/Units 04:10 AST (5-40) units/L CK-MB (CK-2) 2.7 (0.0-4.0) ng/mL Coagulation 12/31/20 Range/Units 13:21 PT 13.2 (12.2-14.9) Sec. INR 1.02 (0.87-1.13) APTT 28.4 (24.2-36.6) Sec. CBC 12/31/20 01/01/21 Range/Units 12:21 10:01 WBC 12.6 H 10.1 (4.5-11.0) K/mm3 RBC 4.56 4.52 (3.65-5.03) M/mm3 Hgb 14.0 14.0 (11.8-15.2) gm/dl Hct 42.0 41.9 (35.5-45.6) % Plt Count 214 209 (140-440) K/mm3 Lymph # (Auto) 2.1 2.4 (1.2-5.4) K/mm3 [place] # (Auto) 0.9 H 1.2 H (0.0-0.8) K/mm3 Eos # (Auto) 0.0 0.2 (0.0-0.4) K/mm3 Baso # (Auto) 0.0 0.0 (0.0-0.1) K/mm3 Comprehensive Metabolic Panel 12/31/20 01/01/21 Range/Units 12:21 10:01 Sodium 133 L 137 (137-145) mmol/L Potassium 3.8 4.1 (3.6-5.0) mmol/L Chloride 97.9 L 101.4 (98-107) mmol/L Carbon Dioxide 26 26 (22-30) mmol/L BUN 15 15 (9-20) mg/dL Creatinine 1.2 1.2 (0.8-1.3) mg/dL Glucose 89 108 H (75-100) mg/dL Calcium 8.8 8.5 (8.4-10.2) mg/dL AST 24 (5-40) units/L ALT 25 (7-56) units/L Alkaline Phosphatase 74 (35-129) units/L Total Protein 7.4 (6.3-8.2) g/dL Albumin 3.9 (3.9-5) g/dL - Imaging and Cardiology Echo: report reviewed (Echo 01/01/2021 reviewed: EF 45-50%. Left ventricle mildly dilated with severe concentric LVH and mild diastolic dysfunction. Trace AR. ) EKG: report reviewed, image reviewed EKG interpretations - Telemetry EKG Rhythm: Sinus Tachycardia - EKG Sinus rhythms and dysrhythmias: sinus rhythm Assessment and Plan Patient presents with ?cellulitis of right lower limb. Also complaints of CP and SOB x 1 week. Cardiology consulted for HF exacerbation. Echo 01/01/2021 reviewed: EF 45-50%. Left ventricle mildly dilated with severe concentric LVH and mild diastolic dysfunction. Trace AR. Pt reports hx of heart failure diagnosed at "[facility] in [place], [place]." He reports undergoing echocardiogram a that time, but does not remember the results. We have requested these medical records. Resume home Coreg and Lisinopril. Agree with IV lasix BID. f/u BMP, lipid panel and Hemoglobin A1C in AM. IV antibiotics per primary team. Will follow. This patient was seen in conjunction with Dr Garett Browning who agrees with this assessment and plan of care. - Patient Problems (1) Acute HFrEF (heart failure with reduced ejection fraction) Current Visit: Yes Status: Acute (2) Cardiomyopathy Current Visit: Yes Status: Chronic Qualifiers: Cardiomyopathy type: unspecified Qualified Code(s): I42.9 - Cardiomyopathy, unspecified (3) Cellulitis and abscess of right leg Current Visit: Yes Status: Acute (4) Chest pain Current Visit: Yes Status: Acute (5) HTN (hypertension) Current Visit: Yes Status: Chronic (6) JOHN on CPAP Current Visit: Yes Status: Chronic (7) Morbid obesity Current Visit: Yes Status: Chronic
[2021-01-01] MEDS ORDERED: METOPROLOL TARTRATE 25 MG TAB PO SCH (13:00)
[2021-01-01] MEDS: VANCOMYCIN 2,000 MG in SODIUM CHLORIDE 0.9% 500 ML 500 ML IV SCH ×2 (14:48→22:19)
--- NOTE | 2021-01-01 17:44 | Consultation ---
History of Present Illness Consult date: 01/01/21 Chief complaint: Right leg ulcer - History of present illness History of present illness: 30 yo male with CHF and posterior right leg ulcer. Past History Past Medical History: other (As per HPI) Social history: smoking Medications and Allergies Allergies Allergy/AdvReac Type Severity Reaction Status Date / Time shellfish derived Allergy Hives Verified 12/31/20 11:58 Home Medications Medication Instructions Recorded Confirmed Last Taken Type Furosemide [Lasix] 20 mg PO QDAY 01/01/21 01/01/21 Unknown History Ibuprofen [Motrin] 600 mg PO Q8H PRN 01/01/21 01/01/21 Unknown History amLODIPine [Norvasc] 10 mg PO DAILY 01/01/21 01/01/21 Unknown History carvediloL [Coreg] 12.5 mg PO BID 01/01/21 01/01/21 Unknown History lisinopriL [Lisinopril] 10 mg PO DAILY 01/01/21 01/01/21 Unknown History Active Meds: Active Medications Acetaminophen (Acetaminophen 325 Mg Tab) 650 mg PO Q4H PRN PRN Reason: Pain MILD(1-3)/Fever >100.5/MICHELLE Aspirin (Aspirin 81 Mg Tab Chew) 81 mg PO QDAY RITU Carvedilol (Carvedilol 12.5 Mg Tab) 12.5 mg PO BID [facility] Furosemide (Furosemide 40 Mg/4 Ml Inj) 40 mg IV 0600,1800 [facility] Last Admin: 01/01/21 05:16 Dose: 40 mg Documented by: Hydromorphone HCl (Hydromorphone 1 Mg/1 Ml Inj) 0.5 mg IV Q3H PRN PRN Reason: Pain , Severe (7-10) Last Admin: 01/01/21 12:04 Dose: 0.5 mg Documented by: Ampicillin Sodium/Sulbactam Sodium (Unasyn/Ns 3 Gm/100 Ml) 3 gm in 100 mls @ 100 mls/hr IV Q6HR [facility]; Protocol Last Admin: 01/01/21 11:05 Dose: 100 mls/hr Documented by: Vancomycin HCl 2,000 mg/ (Sodium Chloride) 540 mls @ 250 mls/hr IV Q12H [facility] Last Admin: 01/01/21 14:48 Dose: 250 mls/hr Documented by: Lisinopril (Lisinopril 10 Mg Tab) 10 mg PO DAILY [facility] Ondansetron HCl (Ondansetron 4 Mg/2 Ml Inj) 4 mg IV Q8H PRN PRN Reason: Nausea And Vomiting Potassium Chloride (Potassium Chloride Er 20 Meq Tab) 20 meq PO Q12HR [facility] Last Admin: 01/01/21 10:53 Dose: 20 meq Documented by: Sodium Chloride (Sodium Chloride 0.9% 10 Ml Flush Syringe) 10 ml IV BID [facility] Last Admin: 01/01/21 10:54 Dose: 10 ml Documented by: Sodium Chloride (Sodium Chloride 0.9% 10 Ml Flush Syringe) 10 ml IV PRN PRN PRN Reason: LINE FLUSH Review of Systems All systems: negative (none) Exam Vital Signs Temp Pulse Resp BP Pulse Ox 100.5 F H 106 H 24 157/94 98 12/31/20 12:01 12/31/20 12:01 12/31/20 12:01 12/31/20 12:01 12/31/20 12:01 - General physical appearance Positive: well developed, well nourished, no distress - Eyes Positive: PERRL, normal occular movement - ENT Positive: normal pinna, normal nares, normal mucosa, no hearing loss, no congestion - Neck Positive: no masses, no bruits, trachea midline, no venous distension - Respiratory Positive: normal expansion, normal respiratory effort, clear to auscultation - Cardiovascular Rhythm: regular Heart Sounds: Present: S1 & S2. Absent: rub, click - Extremities Extremities: no ischemia, pulses symmetrical, No edema - Breasts Breasts: normal, no mass, no skin changes - Abdomen Abdomen: Present: soft, bowel sounds normal. Absent: tender, distended Hernia: none - Genitourinary Male Genitourinary: normal Female Genitourinary: normal - Integumentary no rash, no growths, other (See Wound Care nurses notes for description, photograph and size of right leg ulcer.) - Neurologic Neurologic: alert and oriented to time, place and person, motor strength and sensation are grossly intact - Musculoskeletal normal gait, normal posture - Psychiatric Psychiatric: appropriate mood/affect, intact judgment & insight Results - Labs 01/01/21 10:01 01/01/21 10:01 Abnormal lab results 12/31/20 01/01/21 01/01/21 Range/Units 22:40 04:10 10:01 [place] % (Auto) 11.8 H (0.0-7.3) % [place] # (Auto) 1.2 H (0.0-0.8) K/mm3 Glucose (75-100) mg/dL Total Creatine Kinase 575 H 588 H (55-170) units/L 01/01/21 Range/Units 10:01 [place] % (Auto) (0.0-7.3) % [place] # (Auto) (0.0-0.8) K/mm3 Glucose 108 H (75-100) mg/dL Total Creatine Kinase (55-170) units/L Diabetes panel 01/01/21 Range/Units 10:01 Sodium 137 (137-145) mmol/L Potassium 4.1 (3.6-5.0) mmol/L Chloride 101.4 (98-107) mmol/L Carbon Dioxide 26 (22-30) mmol/L BUN 15 (9-20) mg/dL Creatinine 1.2 (0.8-1.3) mg/dL Glucose 108 H (75-100) mg/dL Calcium 8.5 (8.4-10.2) mg/dL Calcium panel 01/01/21 Range/Units 10:01 Calcium 8.5 (8.4-10.2) mg/dL Pituitary panel 01/01/21 Range/Units 10:01 Sodium 137 (137-145) mmol/L Potassium 4.1 (3.6-5.0) mmol/L Chloride 101.4 (98-107) mmol/L Carbon Dioxide 26 (22-30) mmol/L BUN 15 (9-20) mg/dL Creatinine 1.2 (0.8-1.3) mg/dL Glucose 108 H (75-100) mg/dL Calcium 8.5 (8.4-10.2) mg/dL Adrenal panel 01/01/21 Range/Units 10:01 Sodium 137 (137-145) mmol/L Potassium 4.1 (3.6-5.0) mmol/L Chloride 101.4 (98-107) mmol/L Carbon Dioxide 26 (22-30) mmol/L BUN 15 (9-20) mg/dL Creatinine 1.2 (0.8-1.3) mg/dL Glucose 108 H (75-100) mg/dL Calcium 8.5 (8.4-10.2) mg/dL Assessment and Plan - Patient Problems (1) Venous stasis ulcer of right lower leg with edema of right lower leg Current Visit: Yes Status: Acute Plan to address problem: 1) Optimize management of CHF 2) Keep right leg elevated with at least 2 pillows. 3) Venous US of RLE 4) Continue wound care management.
[2021-01-01] MEDS: ASPIRIN 81 MG TAB CHEW PO SCH (18:43)
[2021-01-01] MEDS: carvediloL 12.5 MG TAB PO SCH (22:18)
[2021-01-02] MEDS: AMPICILLIN/SULBACTA 3GM/100ML 3 GM/100 ML BAG IV SCH ×5 (00:53→23:24)
[2021-01-02] MEDS: FUROSEMIDE 40 MG/4 ML INJ IV SCH ×2 (05:41→17:40)
[2021-01-02 06:05] LABS: Basophils % (Auto) 0.5 % (0.0-1.8); Eosinophils # (Auto) 0.5 K/mm3 (0.0-0.4); Hematocrit 40.3 % (35.5-45.6); Hemoglobin 13.4 gm/dl (11.8-15.2); Lymphocytes % (Auto) 31.6 % (13.4-35.0); Mean Corpuscular HGB Conc 33 % (32-34); Mean Corpuscular Volume 93 fl (84-94); Monocytes # (Auto) 0.7 K/mm3 (0.0-0.8); Monocytes % (Auto) 7.9 % (0.0-7.3); Platelet Count 206 K/mm3 (140-440); Red Blood Count 4.35 M/mm3 (3.65-5.03); Red Cell Distribution Width 13.5 % (13.2-15.2)
[2021-01-02 06:15] LABS: BUN/Creatinine Ratio 13; Blood Urea Nitrogen 16 mg/dL (9-20); Calcium 8.4 mg/dL (8.4-10.2); Chol/HDL Ratio 2.72 %; HDL Cholesterol 43 mg/dL (40-59); Hemolysis Index 2; LDL Cholesterol,Direct 69 mg/dL (50-130)
[2021-01-02] MEDS: POTASSIUM CHLORIDE ER 20 MEQ TAB PO SCH ×2 (09:39→21:24)
[2021-01-02] MEDS: LISINOPRIL 10 MG TAB PO SCH (09:39)
[2021-01-02] MEDS: ASPIRIN 81 MG TAB CHEW PO SCH (09:39)
[2021-01-02] MEDS: carvediloL 12.5 MG TAB PO SCH ×2 (09:40→21:24)
[2021-01-02] MEDS: VANCOMYCIN 2,000 MG in SODIUM CHLORIDE 0.9% 500 ML 500 ML IV SCH ×2 (10:00→21:24)
--- NOTE | 2021-01-02 10:31 | Progress Note ---
Assessment and Plan tte reviewed - EF 45-50%, LV mildly dilated, severe LVH, mild diastolic dysfunction. Some medical records from [place], [place] ([facility]) obtained - pt was admitted in 07/2020 with RLE leg wound and RLE pain. There is mention of "CHF" during that admission, however, there are no cardiac diagnostics included. Cont home Coreg and Lisinopril. Cont with IV lasix BID. IV antibiotics per primary team. Per general surgery team, continue wound care management. Will follow. The patient has been seen in conjunction with Dr Emmanuelle Browning who agrees with the assessment and plan of care. - Patient Problems (1) Acute heart failure with preserved ejection fraction (HFpEF) Current Visit: Yes Status: Acute (2) Cellulitis of right lower extremity without foot Current Visit: Yes Status: Acute (3) HTN (hypertension) Current Visit: Yes Status: Chronic (4) Hypertensive heart disease Current Visit: Yes Status: Chronic (5) Morbid obesity Current Visit: Yes Status: Chronic (6) JOHN on CPAP Current Visit: Yes Status: Chronic Subjective Date of service: 01/02/21 Principal diagnosis: RLE ulcer; HF Interval history: pt sitting up at bedside, feeling a little better. tele reviewed - in SR HR 80s. Objective Last Vital Signs Temp 98.5 F 01/02/21 05:31 Pulse 83 01/02/21 09:39 Resp 24 01/02/21 05:31 BP 148/85 01/02/21 09:39 Pulse Ox 92 01/02/21 08:16 - Physical Examination General: No Apparent Distress HEENT: Positive: PERRL Neck: Positive: neck supple, trachea midline Cardiac: Positive: Reg Rate and Rhythm, S1/S2 Lungs: Positive: Decreased Breath Sounds Neuro: Positive: Grossly Intact Abdomen: Positive: Unremarkable Skin: Positive: Wound. Negative: Rash Musculoskeletal: other (RLE ulcer in bandage) Extremities: Present: upper extr. pulses, lower extr. pulses, +2 Edema - Labs and Meds Lipids 01/02/21 Range/Units 05:26 Triglycerides 90 (2-149) mg/dL Cholesterol 117 (50-199) mg/dL HDL Cholesterol 43 (40-59) mg/dL Cholesterol/HDL Ratio 2.72 % CBC 01/01/21 01/02/21 Range/Units 10:01 05:26 WBC 10.1 9.4 (4.5-11.0) K/mm3 RBC 4.52 4.35 (3.65-5.03) M/mm3 Hgb 14.0 13.4 (11.8-15.2) gm/dl Hct 41.9 40.3 (35.5-45.6) % Plt Count 209 206 (140-440) K/mm3 Lymph # (Auto) 2.4 3.0 (1.2-5.4) K/mm3 [place] # (Auto) 1.2 H 0.7 (0.0-0.8) K/mm3 Eos # (Auto) 0.2 0.5 H (0.0-0.4) K/mm3 Baso # (Auto) 0.0 0.0 (0.0-0.1) K/mm3 Comprehensive Metabolic Panel 01/01/21 01/02/21 Range/Units 10:01 05:26 Sodium 137 138 (137-145) mmol/L Potassium 4.1 4.2 (3.6-5.0) mmol/L Chloride 101.4 103.4 (98-107) mmol/L Carbon Dioxide 26 27 (22-30) mmol/L BUN 15 16 (9-20) mg/dL Creatinine 1.2 1.2 (0.8-1.3) mg/dL Glucose 108 H 115 H (75-100) mg/dL Calcium 8.5 8.4 (8.4-10.2) mg/dL - Imaging and Cardiology EKG: report reviewed, image reviewed Echo: report reviewed (Echo 01/01/2021 reviewed: EF 45-50%. Left ventricle mildly dilated with severe concentric LVH and mild diastolic dysfunction. Trace AR. ) - Telemetry EKG Rhythm: Sinus Rhythm - EKG Sinus rhythms and dysrhythmias: sinus rhythm
--- NOTE | 2021-01-02 10:35 | Progress Note ---
Assessment and Plan Assessment and plan: (1) Acute exacerbation of CHF (congestive heart failure) Current Visit: Yes Status: Acute Qualifiers: Heart failure type: combined systolic and diastolic Qualified Code(s): I50.43 - Acute on chronic combined systolic (congestive) and diastolic (congestive) heart failure Plan to address problem: We will get echocardiogram for ejection fraction IV Lasix through 12 initiated : Cardiology consult requested (2) Cellulitis and abscess of right leg Current Visit: Yes Status: Acute Plan to address problem: A large ulcer 10 cm X 5 cm present on the posterior aspect of the right lower extremity 6 inches above the ankle. No active drainage. But warm to touch. Patient initiated on IV Unasyn and vancomycin Surgery consult requested (3) Chest pain Current Visit: Yes Status: Acute Plan to address problem: Serial troponins and CK/MB Will defer to cardiology regarding Lexiscan Patient may not fit the table (4) Morbid obesity Current Visit: Yes Status: Chronic Plan to address problem: Patient counseled Patient to follow-up with bariatric surgery as outpatient There is gastric bypass Insurance concerns present (5) DVT prophylaxis Current Visit: Yes Status: Acute Plan to address problem: On heparin and GI prophylaxis 01/01/2021 -Patient is complaining intermittent shortness of breath, patient was off oxygen. Seen by cardiology and recommend to continue Lasix and added beta- madelyn. Patient has stasis ulcer of the right lower extremity patient is placed on IV Unasyn and vancomycin. General surgery consulted and will follow recommendations. Patient is morbidly obese. 01/02/2021 -Patient was evaluated by cardiology and recommend 1 more day of diuresis. I will IV antibiotics while he was in the hospital. Patient was evaluated by wound surgeon and recommended to have wound care follow-up as an outpatient. -Patient will be discharged tomorrow History Interval history: Patient was seen and evaluated this morning Patient's shortness of breath resolved No pain from the wound Hospitalist Physical - Physical exam Narrative exam: Not in cardiopulmonary distress. The patient is morbidly obese. Vital signs as documented. Head exam is unremarkable. No scleral icterus . Neck is without jugular venous distension, thyromegaly, or carotid bruits. Lungs are clear to auscultation. Cardiac exam reveals regular rate and Rhythm. Abdominal exam reveals normal bowel sounds, nontender, no organomegaly. Extremities right lower extremity ulcer. 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 No focal weakness. - Constitutional Vitals: Temp Pulse Resp BP Pulse Ox 98.5 F 83 24 148/85 92 01/02/21 05:31 01/02/21 09:39 01/02/21 05:31 01/02/21 09:39 01/02/21 08:16 General appearance: Present: no acute distress HEART Score - HEART Score EKG: Non-specific Age: < 45 Risk factors: 1-2 risk factors Troponin: Troponin T < 0.010 ng/mL (0.00-0.029) 01/01/21 04:10 Troponin: 1-3x normal limit - Critical Actions Critical Actions: 4-6 pts:12-16.6% risk of adverse cardiac event. Should be admitted Results - Labs CBC & Chem 7: 01/02/21 05:26 01/02/21 05:26 Labs: Laboratory Last Values WBC 9.4 K/mm3 (4.5-11.0) 01/02/21 05:26 RBC 4.35 M/mm3 (3.65-5.03) 01/02/21 05:26 Hgb 13.4 gm/dl (11.8-15.2) 01/02/21 05:26 Hct 40.3 % (35.5-45.6) 01/02/21 05:26 MCV 93 fl (84-94) 01/02/21 05:26 MCH 31 pg (28-32) 01/02/21 05:26 MCHC 33 % (32-34) 01/02/21 05:26 RDW 13.5 % (13.2-15.2) 01/02/21 05:26 Plt Count 206 K/mm3 (140-440) 01/02/21 05:26 Lymph % (Auto) 31.6 % (13.4-35.0) 01/02/21 05:26 [place] % (Auto) 7.9 % (0.0-7.3) H 01/02/21 05:26 Eos % (Auto) 5.0 % (0.0-4.3) H 01/02/21 05:26 Baso % (Auto) 0.5 % (0.0-1.8) 01/02/21 05:26 Lymph # (Auto) 3.0 K/mm3 (1.2-5.4) 01/02/21 05:26 [place] # (Auto) 0.7 K/mm3 (0.0-0.8) 01/02/21 05:26 Eos # (Auto) 0.5 K/mm3 (0.0-0.4) H 01/02/21 05:26 Baso # (Auto) 0.0 K/mm3 (0.0-0.1) 01/02/21 05:26 Seg Neutrophils % 55.0 % (40.0-70.0) 01/02/21 05:26 Seg Neutrophils # 5.2 K/mm3 (1.8-7.7) 01/02/21 05:26 PT 13.2 Sec. (12.2-14.9) 12/31/20 13:21 INR 1.02 (0.87-1.13) 12/31/20 13:21 APTT 28.4 Sec. (24.2-36.6) 12/31/20 13:21 Sodium 138 mmol/L (137-145) 01/02/21 05:26 Potassium 4.2 mmol/L (3.6-5.0) 01/02/21 05:26 Chloride 103.4 mmol/L (98-107) 01/02/21 05:26 Carbon Dioxide 27 mmol/L (22-30) 01/02/21 05:26 Anion Gap 12 mmol/L 01/02/21 05:26 BUN 16 mg/dL (9-20) 01/02/21 05:26 Creatinine 1.2 mg/dL (0.8-1.3) 01/02/21 05:26 Estimated GFR > 60 ml/min 01/02/21 05:26 BUN/Creatinine Ratio 13 % 01/02/21 05:26 Glucose 115 mg/dL (75-100) H 01/02/21 05:26 Hemoglobin A1c 5.9 % (4-6) 01/02/21 05:26 Lactic Acid 1.00 mmol/L (0.7-2.0) 12/31/20 12:21 Calcium 8.4 mg/dL (8.4-10.2) 01/02/21 05:26 Magnesium 1.70 mg/dL (1.7-2.3) 12/31/20 13:21 Total Bilirubin 0.50 mg/dL (0.1-1.2) 12/31/20 12:21 AST 24 units/L (5-40) 12/31/20 12:21 ALT 25 units/L (7-56) 12/31/20 12:21 Alkaline Phosphatase 74 units/L (35-129) 12/31/20 12:21 Total Creatine Kinase 588 units/L (55-170) H 01/01/21 04:10 CK-MB (CK-2) 2.7 ng/mL (0.0-4.0) 01/01/21 04:10 CK-MB (CK-2) Rel Index 0.4 (0-4) 01/01/21 04:10 Troponin T < 0.010 ng/mL (0.00-0.029) 01/01/21 04:10 NT-Pro-B Natriuret Pep 417.4 pg/mL (0-450) 12/31/20 13:21 Total Protein 7.4 g/dL (6.3-8.2) 12/31/20 12:21 Albumin 3.9 g/dL (3.9-5) 12/31/20 12:21 Albumin/Globulin Ratio 1.1 % 12/31/20 12:21 Triglycerides 90 mg/dL (2-149) 01/02/21 05:26 Cholesterol 117 mg/dL (50-199) 01/02/21 05:26 LDL Cholesterol Direct 69 mg/dL (50-130) 01/02/21 05:26 HDL Cholesterol 43 mg/dL (40-59) 01/02/21 05:26 Cholesterol/HDL Ratio 2.72 % 01/02/21 05:26 Urine Color Yellow (Yellow) 12/31/20 Unknown Urine Turbidity Clear (Clear) 12/31/20 Unknown Urine pH 7.0 (5.0-7.0) 12/31/20 Unknown Ur Specific [place] 1.015 (1.003-1.030) 12/31/20 Unknown Urine Protein <15 mg/dl mg/dL (Negative) 12/31/20 Unknown Urine Glucose (UA) Neg mg/dL (Negative) 12/31/20 Unknown Urine Ketones Neg mg/dL (Negative) 12/31/20 Unknown Urine Blood Sm (Negative) 12/31/20 Unknown Urine Nitrite Neg (Negative) 12/31/20 Unknown Urine Bilirubin Neg (Negative) 12/31/20 Unknown Urine Urobilinogen < 2.0 mg/dL (<2.0) 12/31/20 Unknown Ur Leukocyte Esterase Neg (Negative) 12/31/20 Unknown Urine WBC (Auto) 1.0 /HPF (0.0-6.0) 12/31/20 Unknown Urine RBC (Auto) 10.0 /HPF (0.0-6.0) 12/31/20 Unknown U Epithel Cells (Auto) 1.0 /HPF (0-13.0) 12/31/20 Unknown Urine Mucus Few /HPF 12/31/20 Unknown Urine Opiates Screen Negative 12/31/20 Unknown Urine Methadone Screen Negative 12/31/20 Unknown Ur Barbiturates Screen Negative 12/31/20 Unknown Ur Phencyclidine Scrn Negative 12/31/20 Unknown Ur Amphetamines Screen Negative 12/31/20 Unknown U Benzodiazepines Scrn Negative 12/31/20 Unknown Urine Cocaine Screen Negative 12/31/20 Unknown U Marijuana (THC) Screen Negative 12/31/20 Unknown Drugs of Abuse Note Disclamer 12/31/20 Unknown Microbiology: Microbiology 12/31/20 Unknown Leg - Right Wound Culture - Preliminary 12/31/20 12:21 Peripheral/Venous Blood Culture - Preliminary NO GROWTH AFTER 24 HOURS 12/31/20 12:21 Peripheral/Venous Blood Culture - Preliminary NO GROWTH AFTER 24 HOURS Islas/IV: Voiding Method Urinal Active Medications - Current Medications Current Medications: Generic Name Dose Route Start Last Admin Trade Name Freq PRN Reason Stop Dose Admin Acetaminophen 650 mg 12/31/20 22:07 Acetaminophen 325 Mg Tab PO Q4H PRN Pain MILD(1-3)/Fever >100.5/MICHELLE Aspirin 81 mg 01/01/21 15:00 01/02/21 09:39 Aspirin 81 Mg Tab Chew PO 81 mg QDAY RITU Administration Carvedilol 12.5 mg 01/01/21 22:00 01/02/21 09:40 Carvedilol 12.5 Mg Tab PO 12.5 mg BID RITU Administration Furosemide 40 mg 01/01/21 06:00 01/02/21 05:41 Furosemide 40 Mg/4 Ml Inj IV 40 mg 0600,1800 RITU Administration Hydromorphone HCl 0.5 mg 12/31/20 19:01 01/01/21 18:55 Hydromorphone 1 Mg/1 Ml Inj IV 0.5 mg Q3H PRN Administration Pain , Severe (7-10) Ampicillin Sodium/Sulbactam Sodium 3 gm in 100 mls @ 100 mls/hr 01/01/21 00:00 01/02/21 05:41 Unasyn/Ns 3 Gm/100 Ml IV 100 mls/hr Q6HR RITU Administration Protocol Vancomycin HCl 2,000 mg/ 540 mls @ 250 mls/hr 01/01/21 10:00 01/01/21 22:19 Sodium Chloride IV 250 mls/hr Q12H RITU Administration Lisinopril 10 mg 01/02/21 10:00 01/02/21 09:39 Lisinopril 10 Mg Tab PO 10 mg DAILY RITU Administration Ondansetron HCl 4 mg 12/31/20 22:07 Ondansetron 4 Mg/2 Ml Inj IV Q8H PRN Nausea And Vomiting Potassium Chloride 20 meq 12/31/20 23:00 01/02/21 09:39 Potassium Chloride Er 20 Meq Tab PO 20 meq Q12HR RITU Administration Sodium Chloride 10 ml 12/31/20 23:00 01/02/21 09:40 Sodium Chloride 0.9% 10 Ml Flush Syringe IV 10 ml BID RITU Administration Sodium Chloride 10 ml 12/31/20 22:07 Sodium Chloride 0.9% 10 Ml Flush Syringe IV PRN PRN LINE FLUSH Nutrition/Malnutrition Assess - Dietary Evaluation Nutrition/Malnutrition Findings: Nutrition Notes Start: 01/01/21 10:23 Freq: Status: Active Protocol: Document 01/01/21 10:23 (Rec: 01/01/21 10:28 [id number]) Nutrition Notes Need for Assessment generated from: Education Initial or Follow up Brief Note Current Diagnosis Hypertension,Heart Failure Other Pertinent Diagnosis right leg cellulitis Current Diet Cardiac Subjective/Other Information Pt demanding more meat on meal trays. Pt does not want cardiac diet. Explained to pt need and he refused. Pt states he does not use salt and tries to choose low salt food options. Pt given education on how to reduce calorie consuption related to his desire to lose weight. Pt eats out 2-3 times per day and unable or unwilling to make food at home. Pt willing to try to decrease fried food consumption and increase vegetables. #1 Nutrition Diagnosis Limited adherence to nutrition -related recommendations Etiology motivation As Evidenced by Signs and Symptoms pt with desire to lose weight but unwilling to make changes to do so Nutrition Intervention Revisit per MD consult or patient Sign Off request:
--- NOTE | 2021-01-02 15:50 | Vascular Lab Report ---
Right lower extremity Doppler venous ultrasound INDICATION: Edema FINDINGS: The common femoral vein, superficial femoral vein and popliteal vein have normal compressib ility and phasic flow. Pancreas is seen overlying the distal lower extremity and ankle. Diffuse edema in the soft tissues. IMPRESSION: No evidence for DVT. Diffuse soft tissue edema. Signer Name: Eleuterio Singer MD Signed: 01/02/2021 3:45 PM Workstation Name: [place] [id number]
[2021-01-02] MEDS: HYDROmorphone 1 MG/1 ML INJ IV PRN (17:41)
[2021-01-03 05:46] LABS: BUN/Creatinine Ratio 15; Blood Urea Nitrogen 20 mg/dL (9-20); Calcium 8.4 mg/dL (8.4-10.2); Hemolysis Index 8
[2021-01-03] MEDS: FUROSEMIDE 40 MG/4 ML INJ IV SCH ×2 (06:01→18:51)
[2021-01-03] MEDS: AMPICILLIN/SULBACTA 3GM/100ML 3 GM/100 ML BAG IV SCH (06:04)
[2021-01-03] MEDS: ASPIRIN 81 MG TAB CHEW PO SCH (09:47)
[2021-01-03] MEDS: carvediloL 12.5 MG TAB PO SCH (09:47)
[2021-01-03] MEDS: POTASSIUM CHLORIDE ER 20 MEQ TAB PO SCH ×2 (09:47→22:20)
[2021-01-03] MEDS: LISINOPRIL 10 MG TAB PO SCH (09:48)
[2021-01-03] MEDS: VANCOMYCIN 2,000 MG in SODIUM CHLORIDE 0.9% 500 ML 500 ML IV SCH (09:49)
--- NOTE | 2021-01-03 10:54 | Progress Note ---
Assessment and Plan Assessment and plan: (1) Acute exacerbation of CHF (congestive heart failure) Current Visit: Yes Status: Acute Qualifiers: Heart failure type: combined systolic and diastolic Qualified Code(s): I50.43 - Acute on chronic combined systolic (congestive) and diastolic (congestive) heart failure Plan to address problem: We will get echocardiogram for ejection fraction IV Lasix through 12 initiated : Cardiology consult requested (2) Cellulitis and abscess of right leg Current Visit: Yes Status: Acute Plan to address problem: A large ulcer 10 cm X 5 cm present on the posterior aspect of the right lower extremity 6 inches above the ankle. No active drainage. But warm to touch. Patient initiated on IV Unasyn and vancomycin Surgery consult requested (3) Chest pain Current Visit: Yes Status: Acute Plan to address problem: Serial troponins and CK/MB Will defer to cardiology regarding Lexiscan Patient may not fit the table (4) Morbid obesity Current Visit: Yes Status: Chronic Plan to address problem: Patient counseled Patient to follow-up with bariatric surgery as outpatient There is gastric bypass Insurance concerns present (5) DVT prophylaxis Current Visit: Yes Status: Acute Plan to address problem: On heparin and GI prophylaxis 01/01/2021 -Patient is complaining intermittent shortness of breath, patient was off oxygen. Seen by cardiology and recommend to continue Lasix and added beta- madelyn. Patient has stasis ulcer of the right lower extremity patient is placed on IV Unasyn and vancomycin. General surgery consulted and will follow recommendations. Patient is morbidly obese. 01/02/2021 -Patient was evaluated by cardiology and recommend 1 more day of diuresis. I will IV antibiotics while he was in the hospital. Patient was evaluated by wound surgeon and recommended to have wound care follow-up as an outpatient. -Patient will be discharged tomorrow 01/03/2021 -Patient is on IV diuresis for his CHF. Patient is on CPAP at night. Patient is not on oxygen. We will continue IV antibiotics for now. Wound culture grew gram- negative rods and will continue IV antibiotics for now. We will follow identification and sensitivity. History Interval history: Patient was seen and evaluated this morning Patient's shortness of breath resolved No pain from the wound Hospitalist Physical - Physical exam Narrative exam: Not in cardiopulmonary distress. The patient is morbidly obese. Vital signs as documented. Head exam is unremarkable. No scleral icterus . Neck is without jugular venous distension, thyromegaly, or carotid bruits. Lungs are clear to auscultation. Cardiac exam reveals regular rate and Rhythm. Abdominal exam reveals normal bowel sounds, nontender, no organomegaly. Extremities right lower extremity ulcer. 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 No focal weakness. - Constitutional Vitals: Temp Pulse Resp BP Pulse Ox 98.2 F 77 26 H 118/64 93 01/03/21 06:10 01/03/21 06:10 01/03/21 06:10 01/03/21 06:10 01/03/21 06:10 General appearance: Present: no acute distress HEART Score - HEART Score EKG: Non-specific Age: < 45 Risk factors: 1-2 risk factors Troponin: Troponin T < 0.010 ng/mL (0.00-0.029) 01/01/21 04:10 Troponin: 1-3x normal limit - Critical Actions Critical Actions: 4-6 pts:12-16.6% risk of adverse cardiac event. Should be admitted Results - Labs CBC & Chem 7: 01/02/21 05:26 01/03/21 04:07 Labs: Laboratory Last Values WBC 9.4 K/mm3 (4.5-11.0) 01/02/21 05:26 RBC 4.35 M/mm3 (3.65-5.03) 01/02/21 05:26 Hgb 13.4 gm/dl (11.8-15.2) 01/02/21 05:26 Hct 40.3 % (35.5-45.6) 01/02/21 05:26 MCV 93 fl (84-94) 01/02/21 05:26 MCH 31 pg (28-32) 01/02/21 05:26 MCHC 33 % (32-34) 01/02/21 05:26 RDW 13.5 % (13.2-15.2) 01/02/21 05:26 Plt Count 206 K/mm3 (140-440) 01/02/21 05:26 Lymph % (Auto) 31.6 % (13.4-35.0) 01/02/21 05:26 [place] % (Auto) 7.9 % (0.0-7.3) H 01/02/21 05:26 Eos % (Auto) 5.0 % (0.0-4.3) H 01/02/21 05:26 Baso % (Auto) 0.5 % (0.0-1.8) 01/02/21 05:26 Lymph # (Auto) 3.0 K/mm3 (1.2-5.4) 01/02/21 05:26 [place] # (Auto) 0.7 K/mm3 (0.0-0.8) 01/02/21 05:26 Eos # (Auto) 0.5 K/mm3 (0.0-0.4) H 01/02/21 05:26 Baso # (Auto) 0.0 K/mm3 (0.0-0.1) 01/02/21 05:26 Seg Neutrophils % 55.0 % (40.0-70.0) 01/02/21 05:26 Seg Neutrophils # 5.2 K/mm3 (1.8-7.7) 01/02/21 05:26 PT 13.2 Sec. (12.2-14.9) 12/31/20 13:21 INR 1.02 (0.87-1.13) 12/31/20 13:21 APTT 28.4 Sec. (24.2-36.6) 12/31/20 13:21 Sodium 140 mmol/L (137-145) 01/03/21 04:07 Potassium 4.1 mmol/L (3.6-5.0) 01/03/21 04:07 Chloride 104.1 mmol/L (98-107) 01/03/21 04:07 Carbon Dioxide 22 mmol/L (22-30) 01/03/21 04:07 Anion Gap 18 mmol/L 01/03/21 04:07 BUN 20 mg/dL (9-20) 01/03/21 04:07 Creatinine 1.3 mg/dL (0.8-1.3) 01/03/21 04:07 Estimated GFR > 60 ml/min 01/03/21 04:07 BUN/Creatinine Ratio 15 % 01/03/21 04:07 Glucose 123 mg/dL (75-100) H 01/03/21 04:07 Hemoglobin A1c 5.9 % (4-6) 01/02/21 05:26 Lactic Acid 1.00 mmol/L (0.7-2.0) 12/31/20 12:21 Calcium 8.4 mg/dL (8.4-10.2) 01/03/21 04:07 Magnesium 1.70 mg/dL (1.7-2.3) 12/31/20 13:21 Total Bilirubin 0.50 mg/dL (0.1-1.2) 12/31/20 12:21 AST 24 units/L (5-40) 12/31/20 12:21 ALT 25 units/L (7-56) 12/31/20 12:21 Alkaline Phosphatase 74 units/L (35-129) 12/31/20 12:21 Total Creatine Kinase 588 units/L (55-170) H 01/01/21 04:10 CK-MB (CK-2) 2.7 ng/mL (0.0-4.0) 01/01/21 04:10 CK-MB (CK-2) Rel Index 0.4 (0-4) 01/01/21 04:10 Troponin T < 0.010 ng/mL (0.00-0.029) 01/01/21 04:10 NT-Pro-B Natriuret Pep 417.4 pg/mL (0-450) 12/31/20 13:21 Total Protein 7.4 g/dL (6.3-8.2) 12/31/20 12:21 Albumin 3.9 g/dL (3.9-5) 12/31/20 12:21 Albumin/Globulin Ratio 1.1 % 12/31/20 12:21 Triglycerides 90 mg/dL (2-149) 01/02/21 05:26 Cholesterol 117 mg/dL (50-199) 01/02/21 05:26 LDL Cholesterol Direct 69 mg/dL (50-130) 01/02/21 05:26 HDL Cholesterol 43 mg/dL (40-59) 01/02/21 05:26 Cholesterol/HDL Ratio 2.72 % 01/02/21 05:26 Urine Color Yellow (Yellow) 12/31/20 Unknown Urine Turbidity Clear (Clear) 12/31/20 Unknown Urine pH 7.0 (5.0-7.0) 12/31/20 Unknown Ur Specific [place] 1.015 (1.003-1.030) 12/31/20 Unknown Urine Protein <15 mg/dl mg/dL (Negative) 12/31/20 Unknown Urine Glucose (UA) Neg mg/dL (Negative) 12/31/20 Unknown Urine Ketones Neg mg/dL (Negative) 12/31/20 Unknown Urine Blood Sm (Negative) 12/31/20 Unknown Urine Nitrite Neg (Negative) 12/31/20 Unknown Urine Bilirubin Neg (Negative) 12/31/20 Unknown Urine Urobilinogen < 2.0 mg/dL (<2.0) 12/31/20 Unknown Ur Leukocyte Esterase Neg (Negative) 12/31/20 Unknown Urine WBC (Auto) 1.0 /HPF (0.0-6.0) 12/31/20 Unknown Urine RBC (Auto) 10.0 /HPF (0.0-6.0) 12/31/20 Unknown U Epithel Cells (Auto) 1.0 /HPF (0-13.0) 12/31/20 Unknown Urine Mucus Few /HPF 12/31/20 Unknown Urine Opiates Screen Negative 12/31/20 Unknown Urine Methadone Screen Negative 12/31/20 Unknown Ur Barbiturates Screen Negative 12/31/20 Unknown Ur Phencyclidine Scrn Negative 12/31/20 Unknown Ur Amphetamines Screen Negative 12/31/20 Unknown U Benzodiazepines Scrn Negative 12/31/20 Unknown Urine Cocaine Screen Negative 12/31/20 Unknown U Marijuana (THC) Screen Negative 12/31/20 Unknown Drugs of Abuse Note Disclamer 12/31/20 Unknown Microbiology: Microbiology 12/31/20 12:21 Peripheral/Venous Blood Culture - Preliminary NO GROWTH AFTER 48 HOURS 12/31/20 12:21 Peripheral/Venous Blood Culture - Preliminary NO GROWTH AFTER 48 HOURS 12/31/20 Unknown Leg - Right Wound Culture - Preliminary Gram Negative Dennis Gram Negative Dennis#2 Islas/IV: Voiding Method Toilet Active Medications - Current Medications Current Medications: Generic Name Dose Route Start Last Admin Trade Name Freq PRN Reason Stop Dose Admin Acetaminophen 650 mg 12/31/20 22:07 Acetaminophen 325 Mg Tab PO Q4H PRN Pain MILD(1-3)/Fever >100.5/MICHELLE Aspirin 81 mg 01/01/21 15:00 01/03/21 09:47 Aspirin 81 Mg Tab Chew PO 81 mg QDAY RITU Administration Carvedilol 12.5 mg 01/01/21 22:00 01/03/21 09:47 Carvedilol 12.5 Mg Tab PO 12.5 mg BID RITU Administration Furosemide 40 mg 01/01/21 06:00 01/03/21 06:01 Furosemide 40 Mg/4 Ml Inj IV 40 mg 0600,1800 RITU Administration Hydromorphone HCl 0.5 mg 12/31/20 19:01 01/02/21 17:41 Hydromorphone 1 Mg/1 Ml Inj IV 0.5 mg Q3H PRN Administration Pain , Severe (7-10) Ampicillin Sodium/Sulbactam Sodium 3 gm in 100 mls @ 100 mls/hr 01/01/21 00:00 01/03/21 06:04 Unasyn/Ns 3 Gm/100 Ml IV 100 mls/hr Q6HR RITU Administration Protocol Vancomycin HCl 2,000 mg/ 540 mls @ 250 mls/hr 01/01/21 10:00 01/03/21 09:49 Sodium Chloride IV 250 mls/hr Q12H RITU Administration Lisinopril 10 mg 01/02/21 10:00 01/03/21 09:48 Lisinopril 10 Mg Tab PO 10 mg DAILY RITU Administration Ondansetron HCl 4 mg 12/31/20 22:07 Ondansetron 4 Mg/2 Ml Inj IV Q8H PRN Nausea And Vomiting Potassium Chloride 20 meq 12/31/20 23:00 01/03/21 09:47 Potassium Chloride Er 20 Meq Tab PO 20 meq Q12HR RITU Administration Sodium Chloride 10 ml 12/31/20 23:00 01/03/21 09:49 Sodium Chloride 0.9% 10 Ml Flush Syringe IV 10 ml BID RITU Administration Sodium Chloride 10 ml 12/31/20 22:07 Sodium Chloride 0.9% 10 Ml Flush Syringe IV PRN PRN LINE FLUSH Nutrition/Malnutrition Assess - Dietary Evaluation Nutrition/Malnutrition Findings: Nutrition Notes Start: 01/01/21 10:23 Freq: Status: Active Protocol: Document 01/01/21 10:23 BUCK (Rec: 01/01/21 10:28 [email or web address] [id number]) Nutrition Notes Need for Assessment generated from: Education Initial or Follow up Brief Note Current Diagnosis Hypertension,Heart Failure Other Pertinent Diagnosis right leg cellulitis Current Diet Cardiac Subjective/Other Information Pt demanding more meat on meal trays. Pt does not want cardiac diet. Explained to pt need and he refused. Pt states he does not use salt and tries to choose low salt food options. Pt given education on how to reduce calorie consuption related to his desire to lose weight. Pt eats out 2-3 times per day and unable or unwilling to make food at home. Pt willing to try to decrease fried food consumption and increase vegetables. #1 Nutrition Diagnosis Limited adherence to nutrition -related recommendations Etiology motivation As Evidenced by Signs and Symptoms pt with desire to lose weight but unwilling to make changes to do so Nutrition Intervention Revisit per MD consult or patient Sign Off request:
[2021-01-03] MEDS ORDERED: CEFEPIME/NS 1 GM/100 ML 1 GM/100 ML BAG IV SCH (11:00)
[2021-01-03] MEDS ORDERED: CEFEPIME/NS 2 GM/100 ML 2 GM/100 ML BAG IV SCH (11:30)
--- NOTE | 2021-01-03 12:53 | Progress Note ---
Assessment and Plan (1) Acute heart failure with preserved ejection fraction (HFpEF) Current Visit: Yes Status: Acute (2) Cellulitis of right lower extremity without foot Current Visit: Yes Status: Acute (3) HTN (hypertension) Current Visit: Yes Status: Chronic (4) Hypertensive heart disease Current Visit: Yes Status: Chronic (5) Morbid obesity Current Visit: Yes Status: Chronic (6) JOHN on CPAP Current Visit: Yes Status: Chronic Subjective Date of service: 01/03/21 Principal diagnosis: RLE ulcer; HF Interval history: Patient is sitting in the bed. Feeling better. Using CPAP at night. Objective Vital Signs Temp Pulse Resp BP Pulse Ox 01/03/21 06:10 98.2 F 77 26 H 118/64 93 01/02/21 23:02 98.4 F 82 25 H 148/88 97 01/02/21 20:00 94 01/02/21 17:41 20 01/02/21 17:18 98.1 F 87 20 187/91 96 - Physical Examination General: No Apparent Distress HEENT: Positive: PERRL Neck: Positive: neck supple, trachea midline Neuro: Positive: Grossly Intact Abdomen: Positive: Unremarkable Skin: Positive: Wound. Negative: Rash Musculoskeletal: other (RLE ulcer in bandage) Extremities: Present: upper extr. pulses, lower extr. pulses, +2 Edema - Labs and Meds Comprehensive Metabolic Panel 01/03/21 Range/Units 04:07 Sodium 140 (137-145) mmol/L Potassium 4.1 (3.6-5.0) mmol/L Chloride 104.1 (98-107) mmol/L Carbon Dioxide 22 (22-30) mmol/L BUN 20 (9-20) mg/dL Creatinine 1.3 (0.8-1.3) mg/dL Glucose 123 H (75-100) mg/dL Calcium 8.4 (8.4-10.2) mg/dL - Imaging and Cardiology EKG: report reviewed, image reviewed Echo: report reviewed (Echo 01/01/2021 reviewed: EF 45-50%. Left ventricle mildly dilated with severe concentric LVH and mild diastolic dysfunction. Trace AR. ) - EKG Sinus rhythms and dysrhythmias: sinus rhythm (80/m)
--- NOTE | 2021-01-03 13:25 | Consultation ---
History of Present Illness - Reason for Consult Consult date: 01/03/21 R leg infection Requesting physician: RAIMUNDO MERCER - History of Present Illness The patient is a 30-year-old male with morbid obesity, BMI of 61, CHF, chronic venous stasis, severe lymphedema in bilateral lower extremities came to the emergency room due to shortness of breath and right leg ulceration with drainage. Had a low-grade temperature and mild leukocytosis on admission, was started on empiric antibiotics. Also noted to be in CHF, was started on diuretics. Currently receiving cefepime. Has been afebrile. Review of Systems: General: no fevers,chills or rigors HEENT: no new visual disturbance Respiratory: No cough, sputum, hemoptysis. improving shortness of breath Cardiovascular: No chest pain, syncope Gastrointestinal: No nausea, vomiting or diarrhea Genitourinary: No dysuria or hematuria Musculoskeletal: No new or worsening neck pain or back pain Neurologic: No headaches, seizures Hematologic: No easy bruising or bleeding Endocrine: No night sweats or acute weight loss Skin: negative for rash, jaundice Psychiatric: No suicidal or homicidal ideation Past History Past Medical History: other (As per HPI) Social history: smoking Medications and Allergies Allergies Allergy/AdvReac Type Severity Reaction Status Date / Time shellfish derived Allergy Hives Verified 12/31/20 11:58 Home Medications Medication Instructions Recorded Confirmed Last Taken Type Furosemide [Lasix] 20 mg PO QDAY 01/01/21 01/01/21 Unknown History Ibuprofen [Motrin] 600 mg PO Q8H PRN 01/01/21 01/01/21 Unknown History amLODIPine [Norvasc] 10 mg PO DAILY 01/01/21 01/01/21 Unknown History carvediloL [Coreg] 12.5 mg PO BID 01/01/21 01/01/21 Unknown History lisinopriL [Lisinopril] 10 mg PO DAILY 01/01/21 01/01/21 Unknown History Active Meds: Active Medications Acetaminophen (Acetaminophen 325 Mg Tab) 650 mg PO Q4H PRN PRN Reason: Pain MILD(1-3)/Fever >100.5/MICHELLE Aspirin (Aspirin 81 Mg Tab Chew) 81 mg PO QDAY RITU Last Admin: 01/03/21 09:47 Dose: 81 mg Documented by: Carvedilol (Carvedilol 12.5 Mg Tab) 12.5 mg PO BID [facility] Last Admin: 01/03/21 09:47 Dose: 12.5 mg Documented by: Furosemide (Furosemide 40 Mg/4 Ml Inj) 40 mg IV 0600,1800 [facility] Last Admin: 01/03/21 06:01 Dose: 40 mg Documented by: Hydromorphone HCl (Hydromorphone 1 Mg/1 Ml Inj) 0.5 mg IV Q3H PRN PRN Reason: Pain , Severe (7-10) Last Admin: 01/02/21 17:41 Dose: 0.5 mg Documented by: Cefepime HCl (Cefepime/Ns 2 Gm/100 Ml) 2 gm in 100 mls @ 200 mls/hr IV Q12HR [facility] Lisinopril (Lisinopril 10 Mg Tab) 10 mg PO DAILY [facility] Last Admin: 01/03/21 09:48 Dose: 10 mg Documented by: Ondansetron HCl (Ondansetron 4 Mg/2 Ml Inj) 4 mg IV Q8H PRN PRN Reason: Nausea And Vomiting Potassium Chloride (Potassium Chloride Er 20 Meq Tab) 20 meq PO Q12HR [facility] Last Admin: 01/03/21 09:47 Dose: 20 meq Documented by: Sodium Chloride (Sodium Chloride 0.9% 10 Ml Flush Syringe) 10 ml IV BID [facility] Last Admin: 01/03/21 09:49 Dose: 10 ml Documented by: Sodium Chloride (Sodium Chloride 0.9% 10 Ml Flush Syringe) 10 ml IV PRN PRN PRN Reason: LINE FLUSH Physical Examination - Physical Exam Narrative exam: Physical Exam: Constitutional: Alert, cooperative. No acute distress. Morbid obesity Head, Ears, Nose: Normocephalic, atraumatic. External ears, nose normal Eyes: Conjunctivae/corneas clear. No icterus. No ptosis. Neck: Supple, no meningeal signs Cardiovascular: S1, S2 normal. Respiratory: Good air entry, clear to auscultation bilaterally GI: Soft, non-tender; bowel sounds normal. No peritoneal signs Musculoskeletal: Morbid obesity, chronic lymphedema, venous stasis and superfi cial ulceration on right leg with dressing Skin: No rash or abscess Hem/Lymphatic: No palpable cervical or supraclavicular nodes. No lymphangitis Psych: Mood ok. Affect normal Neurological: Awake, alert, oriented. No gross abnormality - Constitutional Vitals: Vital Signs Temp Pulse Resp BP Pulse Ox 98.2 F 77 26 H 118/64 93 01/03/21 06:10 01/03/21 06:10 01/03/21 06:10 01/03/21 06:10 01/03/21 06:10 Temperature -Last 24 Hours Temperature 98.2 F Temperature 98.4 F Temperature 98.1 F Results - Labs CBC & Chem 7: 01/02/21 05:26 01/03/21 04:07 Labs: Abnormal lab results 01/03/21 Range/Units 04:07 Glucose 123 H (75-100) mg/dL - Imaging and Cardiology Chest x-ray: report reviewed, image reviewed (cardiomegaly, no pneumonia seen) Assessment and Plan Cultures: 12/31/2020 blood culture: No growth 12/31/2020 wound culture: Heavy growth of Proteus mirabilis, moderate growth of Pseudomonas aeruginosa A/P: 30-year-old male with morbid obesity, BMI of 61, CHF, chronic venous stasis, severe lymphedema in bilateral lower extremities came to the emergency room due to shortness of breath and right leg ulceration with drainage: #Right leg cellulitis, venous stasis ulceration: Ulceration is superficial, does not appear to be grossly infected, does have mild cellulitis. DVT scan negative. GNRs are likely colonization but cannot rule out true infection with Pseudomonas. #Morbid obesity: needs to lose weight. Advised patient to consider bariatric surgery. #Acute CHF exacerbation Recs: -Mainstay is edema control, wound care and compression along with elevation -PO Keflex 1000 mg QID + PO Levofloxacin 750 mg daily x 3 days Will sign off. Please call with questions Ritesh Shirley MD, FACP [facility] ([facility] O: [phone] F: [phone]
[2021-01-03] MEDS ORDERED: levoFLOXacin 750 MG TAB PO SCH (14:00)
[2021-01-03] MEDS: cephALEXin 500 MG CAP PO SCH ×2 (16:00→18:50)
[2021-01-03] MEDS: HYDROmorphone 1 MG/1 ML INJ IV PRN (20:16)
[2021-01-03 22:44] VITALS: BP 129/85
[2021-01-04] MEDS: carvediloL 12.5 MG TAB PO SCH (03:46)
[2021-01-04 05:23] LABS: BUN/Creatinine Ratio 16; Blood Urea Nitrogen 19 mg/dL (9-20); Calcium 8.4 mg/dL (8.4-10.2); Hemolysis Index 7
[2021-01-04] MEDS: FUROSEMIDE 40 MG/4 ML INJ IV SCH (06:36)
[2021-01-04] MEDS: cephALEXin 500 MG CAP PO SCH ×2 (06:39)
--- NOTE | 2021-01-04 08:52 | Discharge Summary ---
Providers - Providers Date of Admission: 01/01/21 13:52 Date of discharge: 01/04/21 Attending physician: RAIMUNDO MERCER MD 12/31/20 22:24 Consult to Physician [CONS] Routine Comment: Consulting Provider: ISAIAH RUIZ Physician Instructions: Reason For Exam: CHF exacerbation 12/31/20 22:27 Consult to Physician [CONS] Routine Comment: Consulting Provider: FER ISABEL Physician Instructions: Reason For Exam: Right leg ulcer 12/31/20 22:29 Consult to Wound/ET Nurse [CONS] Routine Reason For Exam: wound eval 01/03/21 10:57 Consult to Physician [CONS] Routine Comment: Consulting Provider: SARITHA AVILES Physician Instructions: Reason For Exam: right leg wound, infected Primary care physician: THRESHING OPERATOR Hospitalization Reason for admission: CHF exacerbation, morbid obesity, infected right leg stasis ulcer Condition: Stable Pertinent studies: Echo Doppler ultrasound of the lower extremity; showed no DVT Hospital course: History of present illness: 30-year-old male with morbid obesity and BMI of 62 with history of congestive heart failure and right leg ulcer comes in for increasing shortness of breath of 1 week duration. Also right leg ulcer for more than a month with his worsening with slight drainage. The ulcer is on the right lower extremity just 6 inches above the ankle on the posterior aspect. No fever or chills. Orthopnea present. Class IV NYHA symptoms present. Patient is a very poor historian. Occasional chest pain. Patient is not sure about his chest pain. States it is mild and intermittent. Hospital course (1) Acute exacerbation of CHF (congestive heart failure) Current Visit: Yes Status: Acute Qualifiers: Heart failure type: combined systolic and diastolic Qualified Code(s): I50.43 - Acute on chronic combined systolic (congestive) and diastolic (congestive) heart failure Plan to address problem: We will get echocardiogram for ejection fraction IV Lasix through 12 initiated : Cardiology consult requested (2) Cellulitis and abscess of right leg Current Visit: Yes Status: Acute Plan to address problem: A large ulcer 10 cm X 5 cm present on the posterior aspect of the right lower extremity 6 inches above the ankle. No active drainage. But warm to touch. Patient initiated on IV Unasyn and vancomycin Surgery consult requested (3) Chest pain Current Visit: Yes Status: Acute Plan to address problem: Serial troponins and CK/MB Will defer to cardiology regarding Lexiscan Patient may not fit the table (4) Morbid obesity Current Visit: Yes Status: Chronic Plan to address problem: Patient counseled Patient to follow-up with bariatric surgery as outpatient There is gastric bypass Insurance concerns present (5) DVT prophylaxis Current Visit: Yes Status: Acute Plan to address problem: On heparin and GI prophylaxis 01/01/2021 -Patient is complaining intermittent shortness of breath, patient was off oxygen. Seen by cardiology and recommend to continue Lasix and added beta- madelyn. Patient has stasis ulcer of the right lower extremity patient is placed on IV Unasyn and vancomycin. General surgery consulted and will follow recommendations. Patient is morbidly obese. 01/02/2021 -Patient was evaluated by cardiology and recommend 1 more day of diuresis. I will IV antibiotics while he was in the hospital. Patient was evaluated by wound surgeon and recommended to have wound care follow-up as an outpatient. -Patient will be discharged tomorrow 01/03/2021 -Patient is on IV diuresis for his CHF. Patient is on CPAP at night. Patient is not on oxygen. We will continue IV antibiotics for now. Wound culture grew gram- negative rods and will continue IV antibiotics for now. We will follow identification and sensitivity. 01/04/2021 -Patient was doing well, off oxygen, CPAP at night. I have a long discussion with the patient about his disease condition and management plan. Patient has stasis ulcer and the mainstay of treatment is decrease the edema, by elevation, taking diuretics, and restrict fluid patient understood and prescription for appropriate medications were given. Patient is morbidly obese and I have extensive discussion with the patient about weight loss and he said he understood and will find a primary care physician to help with that. He was seen by general surgery and recommend no intervention at this time and have wound care follow-up, I discussed with case management and wound care will see him in his house. Patient will follow with wound care surgeon and cardiology as an outpatient. Wound culture grew Proteus mirabilis and Pseudomonas aeruginosa, sensitivity obtained and was seen by ID and recommend Keflex and Levaquin for 3 more days. 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 The patient is morbidly obese. Vital signs as documented. Head exam is unremarkable. No scleral icterus . Neck is without jugular venous distension, thyromegaly, or carotid bruits. Lungs are clear to auscultation. Cardiac exam reveals regular rate and Rhythm. Abdominal exam reveals normal bowel sounds, nontender, no organomegaly. Extremities right lower extremity ulcer, bilateral lower extremity edema SEAT COVER CUTTER: Alert and oriented 3. No focal weakness. - Constitutional Vitals: Temp Pulse Resp BP Pulse Ox 97.4 F L 80 20 129/85 96 01/03/21 22:42 01/04/21 03:46 01/03/21 22:42 01/04/21 03:46 01/03/21 22:42 Plan Activity: no restrictions Weight Bearing Status: Full Weight Bearing Diet: low salt Wound: per your surgeon's advice, per wound nurse instructions, other (Need outpatient wound care) Special Instructions: restrict fluid intake to (1.5L) Follow up with: NUBIA CHASE MD [Primary Care Provider] - 3-5 Days ROYCE LEMUS MD [Staff Physician] - 14 Days FER ISABEL MD [Staff Physician] - 7 Days Prescriptions: Aspirin [Adult Aspirin] 81 mg PO DAILY #30 tablet. amLODIPine 10 mg PO DAILY #30 carvediloL [Coreg] 12.5 mg PO BID #60 Potassium Chloride [K-Dur] 20 meq PO DAILY #30 tablet cephALEXin [Keflex] 1,000 mg PO Q6HR #24 capsule Furosemide [Lasix TAB] 40 mg PO BID #120 levoFLOXacin [Levaquin TAB] 750 mg PO Q24HR #30 tablet lisinopriL [Lisinopril] 10 mg PO DAILY #30
== END 2021-01-04 11:40 | disposition home health service (06) | DRG 871 ==
LOC: ED 11:44 → 3A 14:22 → OBSVTOIN 01-01 13:52
PROVIDERS: ADMIT Internal Medicine; ATTEND Internal Medicine
DX: A41.9 Sepsis, unspecified organism (principal); I50.43 Acute on chronic combined systolic (congestive) and diastolic (congestive) heart failure; L03.115 Cellulitis of right lower limb; Z68.44 Body mass index [BMI] 60.0-69.9, adult; L97.818 Non-pressure chronic ulcer of other part of right lower leg with other specified severity; I42.9 Cardiomyopathy, unspecified; I11.0 Hypertensive heart disease with heart failure; E66.01 Morbid (severe) obesity due to excess calories; I87.8 Other specified disorders of veins; F17.200 Nicotine dependence, unspecified, uncomplicated; G47.33 Obstructive sleep apnea (adult) (pediatric); Z71.89 Other specified counseling; Z98.84 Bariatric surgery status; Z91.013 Allergy to seafood; Z71.3 Dietary counseling and surveillance
CPT/HCPCS: 36415; 71045; 80048; 80053; 80061; 80307; 81001; 82140; 82550; 82553; 83036; 83735; 83880; 84484; 85025; 85610; 85730; 87040; 87076; 87116; 87186; 93005; 93306; 96374; 96375; 99406; G0378; J0295; J0692; J1170; J1940; J3370; J7030; J7040

== ENCOUNTER 2021-04-04 04:17 | Emergency (ER) | payer SELFPAY ==
[2021-04-04] MEDS ORDERED: IBUPROFEN 400 MG TAB PO ONE (10:25)
[2021-04-04] MEDS ORDERED: oxyCODONE /ACETAMINOPHEN 5-325MG TAB PO ONE (10:25)
[2021-04-04] MEDS ORDERED: POTASSIUM CHLORIDE ER 20 MEQ TAB PO STA (10:26)
[2021-04-04] MEDS ORDERED: amLODIPine 10 MG TAB PO STA (10:26)
[2021-04-04] MEDS ORDERED: FUROSEMIDE 20 MG TAB PO STA (10:26)
[2021-04-04] MEDS ORDERED: ASPIRIN EC 81 MG TAB PO STA (10:26)
[2021-04-04] MEDS ORDERED: LISINOPRIL 10 MG TAB PO STA (10:26)
--- NOTE | 2021-04-04 10:28 | Emergency Department Report ---
ED General Adult HPI - General Chief complaint: Wound/Laceration Stated complaint: RIGHT LEG PAIN PUI?: No Time Seen by Provider: 04/04/21 10:14 Source: patient, RN notes reviewed, old records reviewed Mode of arrival: Ambulatory Limitations: No Limitations - History of Present Illness Initial comments: The patient was evaluated in the emergency department for symptoms described in the history of present illness. He/she was evaluated in the context of the global COVID-19 pandemic, which necessitated consideration that the patient might be at risk for infection with the virus that causes COVID-19. Institutional protocols and algorithms that pertain to the evaluation of patients at risk for COVID-19 are in a state of rapid change based on information released by regulatory bodies including the CDC and federal and state organizations. These policies and algorithms were followed during the patient's care in the emergency department. Please note that these policies, procedures and recommendations changed on a rapid basis. Wound surgery, general surgery: Dr. Fer Isabel The patient is a 30-year-old gentleman. His past medical history includes morbid obesity, with a body mass index of 64, congestive heart failure, chronic right leg ulcer, obstructive sleep apnea, compliant with CPAP. The patient was admitted to this hospital December 2020 for infected right leg wound, morbid obesity, and CHF exacerbation. He was seen by general surgery, who recommended no interventions, and outpatient wound care. He completed a course of Keflex and Levaquin. Patient recently got insurance, and endorses that he is going to follow-up next month. He complains today of acute on chronic pain to right posterior distal lower extremity wound. He denies headache, neck pain, chest pain, abdominal pain. He has chronic shortness of breath, which is not a new, worsened or different today, and feels like he is at his baseline. He endorses compliance with his medications. He denies redness, pus or streaking to the right posterior wound, and he is doing dressing changes on a regular basis. He has not really tried analgesia [id number] at home, and he reports he plans on following up with the outpatient wound care surgeon in the clinic. He denies travel, surgery, immobilization, DVT and pulmonary embolism risk factors. He feels like his breathing is basically at his baseline at this time. -: Gradual, days(s), week(s) Location: right, lower extremity Quality: aching Consistency: constant Improves with: movement, rest - Related Data Previous Rx's Medication Instructions Recorded Last Taken Type Acetaminophen [Non-Aspirin Extra 500 mg PO Q6HR PRN #30 tablet 04/04/21 Unknown Rx Strength] Aspirin [Adult Aspirin] 81 mg PO DAILY #30 tablet. 04/04/21 Unknown Rx Furosemide [Lasix TAB] 40 mg PO BID #120 04/04/21 Unknown Rx Ibuprofen [Motrin] 400 mg PO Q8H PRN #30 tablet 04/04/21 Unknown Rx Morphine Sulfate [Morphine Sulfate 7.5 mg PO Q6HR PRN #10 tablet 04/04/21 Unknown Rx IR] Potassium Chloride [K-Dur] 20 meq PO DAILY #30 tablet 04/04/21 Unknown Rx amLODIPine 10 mg PO DAILY #30 04/04/21 Unknown Rx carvediloL [Coreg] 12.5 mg PO BID #60 04/04/21 Unknown Rx lisinopriL [Lisinopril] 10 mg PO DAILY #30 04/04/21 Unknown Rx Allergies Allergy/AdvReac Type Severity Reaction Status Date / Time shellfish derived Allergy Hives Verified 12/31/20 11:58 ED Review of Systems ROS: Stated complaint: RIGHT LEG PAIN Other details as noted in HPI Constitutional: other (Denies loss of taste and smell). denies: fever, malaise, weakness Eyes: denies: eye discharge Respiratory: shortness of breath (Chronic shortness of breath) Cardiovascular: denies: syncope Gastrointestinal: denies: abdominal pain Musculoskeletal: myalgia Skin: rash, lesions, other (Wound to right lower extremity) Neurological: denies: weakness Hematological/Lymphatic: denies: easy bleeding ED Past Medical Hx - Past Medical History Previous Medical History?: Yes Hx Hypertension: Yes Hx Congestive Heart Failure: Yes Hx Diabetes: No (Denies) Additional medical history: Leg ulcer treated with Bactrim. Chronic wound right lower leg. Morbid Obesity - Surgical History Past Surgical History?: No - Social History Smoking Status: Current Every Day Smoker Substance Use Type: None - Medications Home Medications: Home Medications Medication Instructions Recorded Confirmed Last Taken Type Acetaminophen [Non-Aspirin Extra 500 mg PO Q6HR PRN #30 tablet 04/04/21 Unknown Rx Strength] Aspirin [Adult Aspirin] 81 mg PO DAILY #30 tablet. 04/04/21 Unknown Rx Furosemide [Lasix TAB] 40 mg PO BID #120 04/04/21 Unknown Rx Ibuprofen [Motrin] 400 mg PO Q8H PRN #30 tablet 04/04/21 Unknown Rx Morphine Sulfate [Morphine Sulfate 7.5 mg PO Q6HR PRN #10 tablet 04/04/21 Unknown Rx IR] Potassium Chloride [K-Dur] 20 meq PO DAILY #30 tablet 04/04/21 Unknown Rx amLODIPine 10 mg PO DAILY #30 04/04/21 Unknown Rx carvediloL [Coreg] 12.5 mg PO BID #60 04/04/21 Unknown Rx lisinopriL [Lisinopril] 10 mg PO DAILY #30 04/04/21 Unknown Rx ED Physical Exam - General Limitations: No Limitations General appearance: alert, in no apparent distress, obese - Head Head exam: Present: atraumatic, normocephalic - Eye Eye exam: Present: normal appearance, EOMI. Absent: nystagmus - ENT ENT exam: Present: normal exam, normal orophraynx, mucous membranes moist, normal external ear exam - Neck Neck exam: Present: normal inspection, full ROM. Absent: tenderness, meningismus - Respiratory Respiratory exam: Present: decreased breath sounds. Absent: respiratory distress, wheezes, rales, rhonchi, stridor - Cardiovascular Cardiovascular Exam: Present: regular rate, normal rhythm, normal heart sounds. Absent: bradycardia, tachycardia, irregular rhythm, systolic murmur, diastolic murmur, rubs, gallop - GI/Abdominal GI/Abdominal exam: Present: soft. Absent: distended, tenderness, guarding, rebound, rigid, pulsatile mass - Rectal Rectal exam: Present: deferred - Extremities Exam Extremities exam: Present: full ROM, pedal edema (Venous stasis noted in the bilateral lower extremities.), other (2+ pulses noted in the bilateral upper and lower extremities. There is no palpable cord. negative Homans sign. Muscular compartments are soft. The pelvis is stable.). Absent: normal inspection (There is a chronic appearing wound on the right posterior distal lower extremity. It is oval in shape, and approximately 6 cm proximal to the ankle. There is no pus, streaking. There is granulation tissue. There is minimal serous discharge. The muscular compartments are soft.), calf tenderness - Back Exam Back exam: Present: normal inspection, full ROM. Absent: tenderness, CVA tenderness (R), CVA tenderness (L), paraspinal tenderness, vertebral tenderness - Neurological Exam Neurological exam: Present: alert, oriented X3, normal gait, other (No facial droop. Tongue midline. Extraocular movements intact bilaterally. Facial sensation intact to light touch in V1, V2, V3 distribution bilaterally. 5 and a 5 strength in 4 extremities. Sensation intact to light touch in 4 extremities.). Absent: motor sensory deficit - Psychiatric Psychiatric exam: Present: normal affect, normal mood - Skin Skin exam: Present: warm. Absent: rash ED Course Vital Signs 04/04/21 04/04/21 04:24 10:56 Temperature 98.2 F Pulse Rate 96 H 88 Respiratory 20 Rate Blood Pressure 193/105 184/90 O2 Sat by Pulse 97 Oximetry ED Medical Decision Making - Lab Data Vital Signs 04/04/21 04/04/21 04:24 10:56 Temperature 98.2 F Pulse Rate 96 H 88 Respiratory 20 Rate Blood Pressure 193/105 184/90 O2 Sat by Pulse 97 Oximetry - Radiology Data Radiology results: report reviewed, image reviewed [address] [address] XRay Report Signed Patient: RONNIE AC JR MR#: [id number] : 1990 Acct:[id number] Age/Sex: 30 / M ADM Date: 04/04/21 Loc: ED Attending Dr: Ordering Physician: RHONDA CALDERON MD Date of Service: 04/04/21 Procedure(s): XR chest routine 2V Accession Number(s): [id number] cc: RHONDA CALDERON MD Fluoro Time In Minutes: CHEST 2 VIEWS INDICATION / CLINICAL INFORMATION: hx of cough, sob. COMPARISON: Chest radiograph 12/31/2020 FINDINGS: SUPPORT DEVICES: None. HEART / MEDIASTINUM: Stable cardiomegaly. LUNGS / PLEURA: No significant pulmonary or pleural abnormality. No pneumothorax. ADDITIONAL FINDINGS: No significant additional findings. IMPRESSION: 1. Stable cardiomegaly. No acute abnormality identified. Signer Name: Sharon Taylor MD Signed: 04/04/2021 11:09 AM Workstation Name: [id number] Transcribed By: [facility] Dictated By: Sharon Taylor MD Electronically Authenticated By: Sharon Taylor MD Signed Date/Time: 06/12/21 1109 DD/ 1108 - Medical Decision Making Differential diagnosis, including but not limited to: Chronic wound, chronic hypertension, chronic obesity, chronic obstructive sleep apnea chronic hypertension Assessment and plan: 30-year-old gentleman, with what appears to be a chronic noninfected ulcer of his right posterior lower extremity. The patient is afebrile with reassuring vital signs with the exception of chronic hypertension; please reference the [employer] clinical policy on asymptomatic hypertension. No crackles or rales, chest x-ray clear for acute findings, saturating 98% on room air. Nursing team to provide wound dressing, wound care, he will be discharged with acetaminophen, ibuprofen, and a very short course of morphine sulfate. Patient asked for 2-week supply of narcotics, and I explained to the patient that narcotics are not indicated at this time for a prolonged period of time, secondary to potential for addiction, abuse, as well as risk of respiratory depression. I did have a rather extensive discussion with the patient regarding the need to lose weight, and participate in diet and lifestyle modifications, as aggressive weight loss would likely be the single most important relevant factor in the patient's chronic wound healing. This patient does not appear to have an emergent medical condition at this time. Critical care attestation.: If time is entered above; I have spent that time in minutes in the direct care of this critically ill patient, excluding procedure time. ED Disposition Clinical Impression: Morbid obesity, Cardiomyopathy, HTN (hypertension), Venous stasis ulcer Disposition: DC-01 TO HOME OR SELFCARE Is pt being admited?: No Does the pt Need Aspirin: No Condition: Good Instructions: Hypertension (ED), Venous Ulcer Additional Instructions: Recommend the patient continue current home outpatient medications. Recommend aggressive weight loss, physical activity as tolerated, and compliance with CPAP. Weight loss is recommended to assist with improvement in patient's cardiovascular medical conditions, as well as sleep apnea, as well as with improving lower extremity edema, and venous stasis ulcer. Please take the prescribed medications as needed and directed. Please note that patient was found to have high blood pressure while here in the emergency room today. Please continue home wound care. Please follow-up with a primary care doctor within the next week. Please follow-up with a production utility worker within the next week to 2 weeks, such as Dr. Ruiz. This is the production utility worker that saw you while you were in the hospital in December 2020. Please follow-up with the wound care physician/surgeon, such as Dr. Isabel, within the next week. Dr. Isabel also has a local wound care center, please see the enclosed documentation. Please return to the emergency room right away with new pain, worsened pain, migration of pain, projectile vomiting, change in mental status, confusion, inability to tolerate liquid feeds, new, worsened or different symptoms not present on the initial emergency room evaluation. Referrals: JEANNE VERNON MD [Staff Physician] - 3-5 Days ISAIAH RUIZ MD [Staff Physician] - 3-5 Days FER ISABEL MD [Staff Physician] - 3-5 Days [facility] [Outside] - 3-5 Days Forms: Work/School Release Form(ED)
[2021-04-04] MEDS ORDERED: carvediloL 12.5 MG TAB PO SCH (11:00)
--- NOTE | 2021-04-04 11:14 | XRay Report ---
CHEST 2 VIEWS INDICATION / CLINICAL INFORMATION: hx of cough, sob. COMPARISON: Chest radiograph 12/31/2020 FINDINGS: SUPPORT DEVICES: None. HEART / MEDIASTINUM: Stable cardiomegaly. LUNGS / PLEURA: No significant pulmonary or pleural abnormality. No pneumothorax. ADDITIONAL FINDINGS: No significant additional findings. IMPRESSION: 1. Stable cardiomegaly. No acute abnormality identified. Signer Name: Sharon Taylor MD Signed: 04/04/2021 11:09 AM Workstation Name: [id number]
[2021-04-04 13:46] VITALS: BP 138/88
== END 2021-04-04 13:49 | disposition home or self-care (01) ==
LOC: ED 04:17
DX: I42.9 Cardiomyopathy, unspecified (principal); I83.009 Varicose veins of unspecified lower extremity with ulcer of unspecified site; I11.0 Hypertensive heart disease with heart failure; I50.9 Heart failure, unspecified; F17.200 Nicotine dependence, unspecified, uncomplicated; E66.01 Morbid (severe) obesity due to excess calories; Z79.899 Other long term (current) drug therapy; Z91.013 Allergy to seafood; Z68.44 Body mass index [BMI] 60.0-69.9, adult
CPT/HCPCS: 71046